=== PATIENT | female | born 1955 | race Caucasian/White ===

== ENCOUNTER 2019-08-22 14:44 | Outpatient (CLI) | payer MEDICARE, BC, SELFPAY ==
--- NOTE | ~2019-08-22 | MM_ITS ---
EXAMINATION: MM screening alfredo BI w eloise HISTORY: Screening mammogram TECHNIQUE: Craniocaudal and mediolateral oblique 3-D tomosynthesis images were obtained and synthetic 2-D images were generated. CAD analysis was submitted and interpreted. COMPARISON: 08/20/2018, 08/17/2017, 08/04/2016 bilateral digital screening mammogram examinations BREAST PARENCHYMAL COMPOSITION: The breasts are heterogeneously dense, which may obscure small masses . FINDINGS: There is no evidence of suspicious mass, calcification, or architectural distortion to sugg est malignancy in either breast. There has been no suspicious interval change. IMPRESSION: 1. No mammographic evidence of malignancy. 2. Recommend routine screening mammography in one year. BI-RADS Category 1: Negative Reviewed, dictated and finalized at location A.
--- NOTE | ~2019-08-22 | DEXA_ITS ---
Bone Density Report Name: Brianna Serrano Age: 64 Sex: Female Ethnicity: White Date of : 1955 Indication: osteopenia; monitoring treatment; parental hip fracture; height loss; Referring Provider: Ladarius uDnlap Study: Bone densitometry was performed. Exam Date: August 22, 2019 Accession number: [id number] Bone Density: Region BMD T-score Z-score Classification AP Spine (L1-L4) 0.887 -1.5 0.4 Osteopenia Femoral Neck (Left) 0.658 -1.7 -0.1 Osteopenia Total Hip (Left) 0.870 -0.6 0.7 Normal Total Hip Bilateral Avg 0.841 -0.9 0.4 Normal Femoral Neck (Right) 0.650 -1.8 -0.2 Osteopenia Total Hip (Right) 0.811 -1.1 0.2 Osteopenia World Health Organization criteria for BMD impression classify patients as: Normal (T-score at or above -1.0), Osteopenia (T-score between -1.0 and -2.5), or Osteoporosis (T-score at or below -2.5). 10-year Fracture Risk: FRAX not reported because: Treated for osteoporosis Previous Exams: Region Exam Age BMD T-score BMD Change BMD Change Date g/cm2 vs Baseline vs Previous AP Spine(L1-L4) 08/22/2019 64 0.887 -1.5 -0.168(-16.0%) -0.028(-3.1%)* 08/17/2017 62 0.915 -1.2 -0.140(-13.3%) -0.014(-1.5%) 06/18/2015 60 0.928 -1.1 -0.127(-12.0%) -0.014(-1.4%)# 07/11/2011 56 0.942 -1.0 -0.113(-10.7%) -0.080(-7.8%)# 11/09/2004 49 1.022 -0.2 -0.033(-3.1%)* -0.033(-3.1%)* 09/22/2003 48 1.055 0.1 Total Hip(Left) 08/22/2019 64 0.870 -0.6 0.048(5.8%)# 0.026(3.0%) 08/17/2017 62 0.844 -0.8 0.022(2.7%)# 0.005(0.6%) 06/18/2015 60 0.839 -0.8 0.017(2.1%)# -0.007(-0.9%)# 07/11/2011 56 0.846 -0.8 0.025(3.0%)# 0.013(1.6%)# 11/09/2004 49 0.833 -0.9 0.011(1.4%) 0.011(1.4%) 09/22/2003 48 0.822 -1.0 Total Hip(Right) 08/22/2019 64 0.811 -1.1 0.020(2.6%)# 0.027(3.4%) 08/17/2017 62 0.784 -1.3 -0.007(-0.9%)# 0.004(0.5%) 06/18/2015 60 0.781 -1.3 -0.011(-1.3%)# -0.026(-3.3%)# 07/11/2011 56 0.807 -1.1 0.016(2.0%)# 0.004(0.5%)# 11/09/2004 49 0.803 -1.1 0.011(1.4%) 0.011(1.4%) 09/22/2003 48 0.791 -1.2 *Denotes significance at 95% confidence level, LSC for AP Spine = 0.022 g/cm2, LSC for Total Hip = 0.027 g/cm2 Clinical Information Provided by Patient: Parent has had a hip fracture Is being treated for osteoporosis Has used the following medications: Fosamax (i.e. alendronate), Vitamin D, Calcium Patient maximum height was 69 Menopause Age: 40 No regular weight bearing
== END 2019-08-22 14:45 | disposition home or self-care (01) ==
LOC: ANHIMG 14:53
PROVIDERS: PCP Family Medicine; Visit Provider Physician Assistant
DX: Z12.31 Encounter for screening mammogram for malignant neoplasm of breast (principal); M81.0 Age-related osteoporosis without current pathological fracture; M85.88 Other specified disorders of bone density and structure, other site; M85.852 Other specified disorders of bone density and structure, left thigh; M85.851 Other specified disorders of bone density and structure, right thigh
CPT/HCPCS: 77063; 77067; 77080

== ENCOUNTER 2020-09-30 12:41 | Outpatient (CLI) | payer MEDICARE, BC, SELFPAY ==
--- NOTE | ~2020-09-30 | MM_ITS ---
EXAMINATION: MM screening alfredo BI w eloise HISTORY: Screening TECHNIQUE: Craniocaudal and mediolateral oblique 3-D tomosynthesis images were obtained and synthetic 2-D images were generated. CAD analysis was submitted and interpreted. COMPARISON: Comparison to multiple prior studies sequentially, with oldest reviewed study dated 01/2017. BREAST PARENCHYMAL COMPOSITION: The breasts are heterogeneously dense, which may obscure small masses . FINDINGS: There is no evidence of suspicious mass, calcification, or architectural distortion to sugg est malignancy in either breast. There has been no suspicious interval change. IMPRESSION: 1. No mammographic evidence of malignancy. 2. Recommend routine screening mammography in one year. BI-RADS Category 1: Negative Reviewed, dictated and finalized at location A.
== END 2020-09-30 12:42 | disposition home or self-care (01) ==
LOC: ANHIMG 12:45
PROVIDERS: PCP Family Medicine; Visit Provider Family Medicine
DX: Z12.31 Encounter for screening mammogram for malignant neoplasm of breast (principal)
CPT/HCPCS: 77063; 77067

== ENCOUNTER 2021-04-02 15:21 | Outpatient (CLI) | payer MEDICARE, BC, SELFPAY ==
--- NOTE | ~2021-04-02 | XR_ITS ---
XR_CERV2-3V_CR DATE: 04/02/2021 16:04 INDICATION: Radiculopathy, cervical region TECHNIQUE: AP, open-mouth, lateral views COMPARISON: 06/13/2018 cervical spine FINDINGS: C1 and C2 are normally aligned and the odontoid process is intact. There is multilevel degenerative disc disease, mild at C2-3, moderately severe at C3-4, moderate at C 4-5, moderately severe at C5-6, moderate at C6-7. There is degenerative change at the apophyseal joints and mid to lower uncovertebral joints. No fracture, dislocation or locked facet or prevertebral soft tissue swelling. IMPRESSION: Cervical spondylosis, advanced since 06/13/2018 Reviewed, dictated and finalized at Location A. Reviewed, dictated and finalized at location A.
== END 2021-04-02 15:22 | disposition home or self-care (01) ==
LOC: ANHIMG 15:30
PROVIDERS: PCP Family Medicine; Visit Provider Physician Assistant
DX: M47.22 Other spondylosis with radiculopathy, cervical region (principal)
CPT/HCPCS: 72040

== ENCOUNTER 2021-04-09 15:30 | Outpatient (CLI) | payer MEDICARE, BC, SELFPAY ==
--- NOTE | ~2021-04-09 | MR_ITS ---
EXAMINATION: MR cervical spine wo con EXAM DATE: 04/09/2021 16:31 INDICATION: M54.12 - Radiculopathy, cervical region. TECHNIQUE: Multi-sequential, multiplanar MR images of the cervical spine were obtained without contra st. Axial T2, axial T2 MERGE sequence. Sagittal T1, T2, T2 fat saturation images also obtained. Com parison is made to prior examination from 06/27/2016. FINDINGS: Moderate loss of the disc height C3-4, C5-6 and 6-7, mild at C4-5. Partial osseous fusion of the vertebral bodies at C3-4. The vertebral bodies are aligned in the AP dimension. There are no s uspicious marrow signal abnormalities. The spinal cord signal intensity and intrinsic morphology is normal. Cervicomedullary junction is normal in appearance. There are no suspicious marrow signal abn ormalities. Paraspinal soft tissue is unremarkable. Level by level evaluation: C2-C3: Disc does not extend beyond the endplate margin. Uncovertebral joint arthropathy: Mild to moderate bilateral. Facet joint arthropathy: Moderate to severe right, moderate left. Neural foraminal stenosis: Moderate right. Central canal stenosis: No stenosis. C3-C4: Partially fused. Uncovertebral joint arthropathy: Fused. Facet joint arthropathy: Bulky but fused right, partially fused left. Neural foraminal stenosis: Mild right. Central canal stenosis: No stenosis. C4-C5: There is a mild diffuse disc bulge. Uncovertebral joint arthropathy: Moderate right, mild to moderate left. Facet joint arthropathy: Severe right, moderate left. Neural foraminal stenosis: Moderate right, mild to moderate left. Central canal stenosis: No stenosis. C5-C6: There is a mild diffuse disc bulge asymmetric to the left Uncovertebral joint arthropathy: Moderate to severe left, moderate right. Facet joint arthropathy: Moderate to severe bilateral. Neural foraminal stenosis: Moderate to severe left, mild to moderate right. Central canal stenosis: Mild. C6-C7: There is a mild diffuse disc bulge. Uncovertebral joint arthropathy: Moderate to severe bilateral. Facet joint arthropathy: Mild to moderate bilateral. Neural foraminal stenosis: Mild to moderate bilateral. Central canal stenosis: Mild. C7-T1: Disc does not extend beyond the endplate margin. Uncovertebral joint arthropathy: Mild to moderate bilateral. Facet joint arthropathy: Moderate right, mild to moderate left. Neural foraminal stenosis: No stenosis. Central canal stenosis: No stenosis. There is mild interval progression compared to 2017 exam. IMPRESSION: Overall moderate cervical to severe spondylosis, mild progression compared to 2017. Reviewed, dictated and finalized at location A. UTER CUSTOMER SUPPORT SPECIALIST IMPRESSION: Overall moderate cervical to severe spondylosis, mild progression c ompared to 2017.
== END 2021-04-09 15:31 | disposition home or self-care (01) ==
LOC: ANHIMG 15:36
PROVIDERS: PCP Family Medicine; Visit Provider Physician Assistant
DX: M47.22 Other spondylosis with radiculopathy, cervical region (principal)
CPT/HCPCS: 72141

== ENCOUNTER 2021-07-16 10:19 | Observation (INO) | payer MEDICARE, BC, SELFPAY ==
[2021-07-16] VITALS (17 sets, daily range): BP systolic 89–119; BP diastolic 43–89; PULSE 72–177; RESP 14–39; TEMP 36.6–36.9; O2SAT 95–100; BMI 26.6
--- NOTE | ~2021-07-16 | CT_ITS ---
EXAMINATION: CTA chest PE protocol DATE: 07/16/2021 12:04 INDICATION: Shortness of breath TECHNIQUE: Computed tomography angiography (CTA) of the chest was performed with 100 mL Omnipaque-350 intravenous contrast timed to evaluate the pulmonary arteries. Coronal maximum intensity projection 3D-reconstructions were created by the technologist. The dose-length product (DLP) was 282.37 mGy-cm. Automated exposure control and iterative reconstruction technique were employed. COMPARISON: None. FINDINGS: The pulmonary arteries are well-opacified. No pulmonary embolism is identified. There is mi ld atelectasis. Right lower lobe nodules measure up to 5 mm. No pathologically enlarged thoracic lymp h nodes are identified. The heart size is normal. There is a small sliding hiatal hernia. There is mi ld thoracic spondylosis. IMPRESSION: 1. No pulmonary embolus identified. 2. Right lung nodules measuring up to 5 mm. If the patient has no risk factors for malignancy, no fur ther follow up is required. If there are risk factors for malignancy (i.e., history of smoking, asbe stos or radiation exposure), consider followup CT in 12 months. Reviewed, dictated and finalized at location A. ATOLOGICAL SURGEON IMPRESSION: 1. No pulmonary embolus identified. 2. Right lung nodules measuring up to 5 mm. If the patient has no risk factors for malignancy, no further follow up is required. If there are risk factors fo r malignancy (i.e., history of smoking, asbestos or radiation exposure), consid er followup CT in 12 months.
--- NOTE | 2021-07-16 10:25 | ECG_ITS ---
Measurements Intervals [place] Rate: 121 P: KS: 0 QRS: -28 QRSD: 86 T: 69 QT: 333 QTc: 473 Interpretive Statements ATRIAL FIBRILLATION WITH RAPID VENTRICULAR RESPONSE CONSIDER INFERIOR INFARCT, AGE INDETERMINATE BASELINE ARTIFACT- I, II, III, AVR, AVF ABNORMAL ECG Electronically Signed On 07-16-2021 15:16:08 MEDICAL FACILITIES SECTION DIRECTOR by David Abarca D.O.
--- NOTE | 2021-07-16 11:13 | ED.SOB ---
HPI - SOB/Dyspnea General Chief Complaint: Shortness of Breath/Dyspnea Stated Complaint: SOB, dizzy Time Seen by Provider: 07/16/21 10:47 Source: patient History of Present Illness HPI Narrative: Patient presents with shortness of breath. She has symptoms approximately 2 days ago she was at a running to try and get out of the rain and she became really short of breath. Since then mild physical activity or her usual exercise routine causes significant shortness of breath which is unusual for her. Stress sensation of not getting enough air. She denies any lightheadedness nausea vomiting chest pain abdominal pain or diaphoresis. Reports if she is not moving she feels much improved. She reports a history of paroxysmal A. fib and is on Xarelto. Related Data Home Medications Medication Instructions Recorded Confirmed apixaban 5 mg tablet 5 mg PO BID 10/20/20 07/16/21 Allergies Allergy/AdvReac Type Severity Reaction Status Date / Time No Known Allergies Allergy Verified 04/28/21 13:55 Review of Systems Review of Systems: CONSTITUTIONAL: Denies fever, chills, or sweats. EYES: Denies visual changes, redness, or discharge. ENT: Denies rhinorrhea, congestion, sore throat, or otalgia. CARDIOVASCULAR: Denies chest pain, palpitations, or edema. RESPIRATORY: Reports shortness of breath GASTROINTESTINAL: Denies abdominal pain, nausea, vomiting, or diarrhea. GENITOURINARY: Denies dysuria or hematuria. SKIN: Denies rash or itching. MUSCULOSKELETAL: Denies back pain, joint pain, or myalgia. NEUROLOGIC: Denies headache, numbness, dizziness, or weakness. PSYCHIATRIC: Denies anxiety or depression. All systems reviewed & are unremarkable except as noted in HPI and below PMFSH Past Medical History Medical History (Updated 07/16/21 @ 13:56 by Kathy Mascorro PA-C) Age-related osteoporosis without current pathological fracture Essential (primary) hypertension Gastroesophageal reflux disease Hypothyroidism, unspecified Lumbar stenosis Mixed hyperlipidemia Polyp of colon Surgical History Surgical History (Updated 07/16/21 @ 13:53 by Kathy Mascorro PA-C) History of colonoscopy with polypectomy History of exploratory laparotomy History of mandibular surgery TMJ repair. History of spinal surgery (2019) L4-L5-S1 synovial cystectomy and foraminotomy. History of tonsillectomy Family History Family History Mother Patient's mother is Family history of Alzheimer's disease Father Patient's father is Diabetes mellitus Family history of cardiovascular disease Carcinoma of colon Family history of dementia Family history of congestive heart failure Sibling Family history of malignant neoplasm Social History Social History Social History: Surrogate decision-maker: CODE STATUS: Exam Narrative: GENERAL: Well-appearing, well-nourished, and in no acute distress. HEAD: Normocephalic, atraumatic. EYES: PERRLA and EOMI. ENT: Nares clear, no rhinorrhea or epistaxis. Mucous membranes moist. NECK: Supple. No masses. No JVD CHEST: Clear to auscultation. No respiratory distress. No wheezes rales or rhonchi HEART: Regular rhythm. No murmur heard. Normal peripheral pulses. ABDOMEN: Soft, nontender, nondistended, normal active bowel sounds. EXTREMITIES: Normal range of motion. No edema. SKIN: Warm, dry, no rash. NEURO: No focal deficits. Alert and oriented x3. PSYCH: Normal mood and affect. Course Reevaluation(s) Reevaluation #1: Patient is resting comfortably feels much improved after diltiazem. Vital Signs Vital signs: Vital Signs Temperature 36.6 C 07/16/21 10:32 Pulse Rate 77 07/16/21 10:32 Respiratory Rate 18 07/16/21 10:32 Blood Pressure 119/89 07/16/21 10:32 Pulse Oximetry 100 07/16/21 10:32 Temperature 36.6 C 07/16/21 10:32 Pul
[2021-07-16 11:26] LABS: Glucose Point of Care 115 mg/dl (65-105)
[2021-07-16 11:30] LABS: Basophils Percent Auto 0.6 % (0.2-1.2); Eosinophils Absolute Auto 0.1 K/mm3 (0-0.3); Eosinophils Percent Auto 1.1 % (0-4.4); Hematocrit 43.9 % (37.0-47.0); Hemoglobin 14.9 g/dL (12.0-15.0); Immature Granulocyte Absolute 0.01 K/mm3 (0.00-0.031); Immature Granulocyte Percent A 0.2 % (0-0.5); Lymphocytes Absolute Auto 1.39 K/mm3 (0.9-3.2); Lymphocytes Percent Auto 29.5 % (18.3-44.2); Mean Corpuscular HGB Conc 33.9 g/dl (32-36); Mean Corpuscular Hemoglobin 30.2 pg (26-34); Mean Corpuscular Volume 88.9 fl (80-100); Mean Platelet Volume 9.8 fl (7.4-10.4); Monocytes Absolute Auto 0.5 K/mm3 (0.1-0.6); Monocytes Percent Auto 9.8 % (2.6-8.5); Neutrophils Absolute Auto 2.8 K/mm3 (1.3-6.7); Neutrophils Percent Auto 58.8 % (45.5-73.1); Platelet Count Result 212 k/mm3 (150-375); Red Blood Count 4.94 M/mm3 (4.2-5.4); Red Cell Distribution Width 12.8 % (11.5-14.5); White Blood Count 4.7 K/mm3 (4.5-10.0)
[2021-07-16 11:40] LABS: INR 1.1; Prothrombin Time 13.6 Seconds (11.1-14.7)
[2021-07-16 11:41] LABS: Partial Thromboplastin Time 29.8 SECONDS (22.3-36.8)
[2021-07-16 11:48] LABS: Alanine Aminotransferase 23 U/L (4-35); Albumin Level 4.4 g/dL (3.5-5.1); Alkaline Phosphatase 63 U/L (38-126); Anion Gap 11 mmol/L (8-16); Aspartate Amino Transferase 29 U/L (14-36); Bilirubin,Total 0.6 mg/dL (0.2-1.3); Blood Urea Nitrogen 21 mg/dL (7-17); Calcium 9.4 mg/dL (8.4-10.2); Carbon Dioxide 23 mmol/L (22-30); Chloride 109 mmol/L (98-107); Estimated CRCL calculation 69 ml/min; Estimated Glomerular Filt Rate > 60; Glucose 128 mg/dL (65-110); Potassium 4.2 mmol/L (3.4-5.0); Sodium 143 mmol/L (137-145)
[2021-07-16 11:57] LABS: NT Pro B Type Natriuretic Pept 4920 pg/mL (5-100); Troponin I < 0.012 ng/mL (0.000-0.034)
[2021-07-16 12:53] LABS: Add Urine Microscopic? YES; Appearance Urine Clear (Clear); Bacteria Urine Trace /hpf; Bilirubin Urine Negative (Negative); Blood Urine Negative (Negative); Color Urine Yellow (Yellow); Glucose Urine UA Negative (Negative); Ketones Urine Negative (Negative); Leukocyte Esterase Ur Trace LEU/UL (Negative); Mucus Urine Few /lpf; Nitrate Urine Negative (Negative); Protein Urine Negative (Negative); RBC Urine 0-2 /hpf (0-2); Squamous Epithelial Cell Urine Rare /hpf (Few); Urobilinogen Urine Negative mg/dL (<2.0)
[2021-07-16] MEDS: dilTIAZem 100 MG/100 ML 100 MG/100 ML BAG IV CONT (12:56)
[2021-07-16] MEDS: dilTIAZem HCl INJ 25 MG/5 ML VIAL 10 MG IV PUSH (12:56)
--- NOTE | 2021-07-16 13:45 | PM.IMHP ---
H&P: HPI History of Present Illness Date/Time: 07/16/21 13:45 Chief Complaint: Shortness of breath. Narrative: This is a 66-year-old female with paroxysmal atrial fibrillation, hypertension, and hypothyroidism who presented to the emergency department via EMS from her primary care provider's office for evaluation of shortness of breath. A couple of days ago she went to a and ran a short distance to the building in attempts to get out of the rain. She was unusually short of breath thereafter and she has had dyspnea with exertion since that time. Additionally she has been experiencing mild midsternal chest tightness and occasional palpitations which seem to occur mostly with activity. She made an appointment with her doctor today and was sent to the ER after she was found to be in atrial fibrillation with rapid ventricular response. She was given diltiazem 10 mg IV push x1 and is currently on a diltiazem drip with some improvement in her rate. Currently she has no specific complaints and is feeling better with better rate control. She denies syncope, near syncope, current chest pain, shortness of breath, nausea, vomiting, and sweats. Of note, she missed her morning dose of metoprolol today. Review of Systems Review of Systems: Twelve systems were reviewed and are negative except for as per HPI. [facility] Past Medical History Medical History (Updated 07/16/21 @ 13:56 by Kathy Mascorro PA-C) Age-related osteoporosis without current pathological fracture Essential (primary) hypertension Gastroesophageal reflux disease Hypothyroidism, unspecified Lumbar stenosis Mixed hyperlipidemia Polyp of colon Surgical History Surgical History History of colonoscopy with polypectomy History of exploratory laparotomy History of mandibular surgery TMJ repair. History of spinal surgery (2019) L4-L5-S1 synovial cystectomy and foraminotomy. History of tonsillectomy Family History Family History Mother Patient's mother is Family history of Alzheimer's disease Father Patient's father is Diabetes mellitus Family history of cardiovascular disease Carcinoma of colon Family history of dementia Family history of congestive heart failure Sibling Family history of malignant neoplasm Social History Social History (Updated 07/16/21 @ 21:45 by Kathy Mascorro PA-C) Social History: Surrogate decision-maker: Luis Serrano, . CODE STATUS: Full code. Smoking status: Never smoker Second hand tobacco smoke exposure: No Alcohol intake: never Substance use: never Substance use type: does not use Additional living arrangements comments: Resides in [place] with her . 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 Meds Home Medications and Allergies Home Medications Medication Instructions Recorded Confirmed Type metoprolol succinate 100 mg 100 mg PO DAILY #90 tablet 07/13/20 07/16/21 Rx tablet,extended release 24 hr apixaban 5 mg tablet 5 mg PO BID 10/20/20 07/16/21 History levothyroxine 100 mcg tablet See Rx Instructions .ROUTE 07/08/21 07/16/21 Rx .COMPLEX #90 tablet acetaminophen [Tylenol] 650 mg PO BID 07/16/21 07/16/21 History Allergies Allergy/AdvReac Type Severity Reaction Status Date / Time No Known Allergies Allergy Verified 04/28/21 13:55 Vital Signs Vital Signs - 24 hr 07/16/21 10:32 07/16/21 10:44 07/16/21 11:01 Temperature 97.9 F Pulse Rate 77 83 Respiratory Rate 18 17 Blood Pressure 119/89 101/70 Pulse Oximetry 100 100 98 07/16/21 12:03 07/16/21 12:56 Temperature Pulse Rate 103 H 143 H Respiratory Rate 14 Blood Pressure 98/83 L Pulse Oximetry 98 Exam Narrative: General: Well-developed female sitting up in bed. Weight: 81.7 kg. BMI: 26.6. HEENT: ALEX
[2021-07-16 15:25] LABS: SARS-CoV-2 RNA PCR Negative
[2021-07-16] MEDS: METOPROLOL TARTRATE 50 MG TAB PO (16:11)
--- NOTE | 2021-07-16 19:56 | PC.NURSE ---
Patient care report called to VANNESSA Long, all questions answered at this time.
--- NOTE | 2021-07-16 21:06 | ADMGEN ---
Addendum entered by Mercedes Ambrocio RN 07/16/21 21:26: Patient arrived at 2023. Original Note: This patient, Brianna Serrano, was admitted to [facility] at 2030. Patient/family oriented to hospital policies and general routines including ID bracelet, bed and alarms, visiting hours, pain management, procedures, bathroom and other care routines, personal items, smoking policy, room service/diet, and visiting hours. Information on how to activate the Rapid Response Team has been discussed. Patient/Family are encouraged to report perceived risks to care and to ask questions if they do not understand what they are told or what they should do.
[2021-07-16] MEDS: APIXABAN 5 MG TABLET PO (22:17)
[2021-07-17] VITALS (8 sets, daily range): BP systolic 125–126; BP diastolic 74–79; PULSE 67–85; RESP 13–16; TEMP 36.1–36.8; O2SAT 96–98
[2021-07-17 05:15] LABS: Anion Gap 7 mmol/L (8-16); Blood Urea Nitrogen 21 mg/dL (7-17); Carbon Dioxide 23 mmol/L (22-30); Chloride 109 mmol/L (98-107); Estimated CRCL calculation 69 ml/min; Estimated Glomerular Filt Rate > 60; Glucose 111 mg/dL (65-110); Sodium 139 mmol/L (137-145)
[2021-07-17] MEDS: LEVOTHYROXINE SODIUM 100 MCG TABLET PO (06:12)
[2021-07-17] MEDS: APIXABAN 5 MG TABLET PO (08:48)
[2021-07-17] MEDS: METOPROLOL SUCCINATE EXT REL 100 MG TABCR PO (08:49)
--- NOTE | 2021-07-17 11:17 | PM.CNCAR ---
Assessment and Plan Assessment and plan (1) Paroxysmal atrial fibrillation: Code(s): I48.0 - Paroxysmal atrial fibrillation Status: Acute Assessment and Plan: Symptoms related atrial fibrillation with rapid ventricular response. She converted back to sinus rhythm and is feeling fine. Her episodes are infrequent. At this point I do not see a need to change her regimen. I do not think that she needs a an antiarrhythmic at this point. We simply discharge her on the same medications that she came in with including metoprolol succinate, Eliquis 5 mg p.o. b.i.d. follow-up with Dr. Miramontes 1-2 weeks. (2) Chronic anticoagulation: Code(s): Z79.01 - FPC (current) use of anticoagulants Status: Acute Assessment and Plan: Continue Eliquis (3) Nodule of right lung: Code(s): R91.1 - Solitary pulmonary nodule Status: Acute Assessment and Plan: Will need outpatient monitoring and follow-up with Dr. Parra. She verbalized understanding and will follow-up (4) Hypothyroidism, unspecified: Qualifiers: Hypothyroidism type: unspecified Qualified Code(s): E03.9 - Hypothyroidism, unspecified Code(s): E03.9 - Hypothyroidism, unspecified Status: Acute Assessment and Plan: On replacement (5) Mixed hyperlipidemia: Code(s): E78.2 - Mixed hyperlipidemia Status: Acute (6) Essential (primary) hypertension: Code(s): I10 - Essential (primary) hypertension Status: Acute Assessment and Plan: Near goal Okay for discharge from cardiac perspective History of Present Illness History of Present Illness Consult date/time: 07/17/21 11:17 Requesting physician: Cj Vargas MD Consult reason: atrial fibrillation Reason For Visit: Afib with RVR Narrative: Date of service 07/17/2021 Reason consultation: Atrial fibrillation Requesting provider: Dr. Vargas History patient is a 66-year-old female who has paroxysmal atrial fibrillation, hypertension and hypothyroidism who went to her primary care's office yesterday and was found to be in atrial fibrillation rapid ventricular response. She was sent to the ER for further workup evaluation. She was found to be in AFib and started on diltiazem drip as well as diltiazem IV push 10 mg. She did convert to sinus rhythm for which she remains. Her symptoms have since resolved. Her symptoms started earlier in the week whenever she was rushing to get out of the rain. She shortly thereafter became short of breath and she had continued to have dyspnea with exertion as well as some mild chest tightness with exertion over the next couple of days. Her symptoms worsened to the point that she call to be seen by her PCP. She otherwise has been feeling fine without any chest pain, syncope, presyncope, paroxysmal nocturnal dyspnea, orthopnea, edema, palpitations or dyspnea. She has not been having any significant palpitations over the past couple of days and mostly simply shortness of breath. Review of Systems Review of Systems: All systems reviewed & are unremarkable except as noted in HPI and below Constitutional: Constitutional: Denies weakness Eyes: Eyes: Denies blurry vision ENT: Reports Normal hearing present Cardiovascular: Cardiovascular: Reports chest pain Respiratory: Respiratory: Reports dyspnea on exertion Gastrointestinal: Gastrointestinal: Denies abdominal pain Genitourinary: Genitourinary: Denies flank pain Musculoskeletal: Musculoskeletal: Denies neck pain Integumentary/Breasts: Skin/Breast: Denies dry skin Neurologic: Denies headache(s) Psychiatric: Psychiatric: Denies anxiety Endocrine: Endocrine: Denies excessive sweating Hematologic/Lymphatic: Hematologic/Lymphatic: Denies easy bleeding Allergic/Immunologic: Allergic/Immunologic: Denies GI upset with certain foods PMFSH Past Medical History Medical History (Reviewed 07/17/21 @ 11:20 by Jaylen Ro,
--- NOTE | 2021-07-17 11:33 | PM.DS ---
DS: Admitting Diagnosis Discharge Date 07/17/21 Admitting Diagnosis SOB/CP DS: Discharge Diagnosis Discharge Diagnosis (1) Atrial fibrillation with rapid ventricular response: Code(s): I48.91 - Unspecified atrial fibrillation Status: Acute Assessment and Plan: This is a 66-year-old female with paroxysmal atrial fibrillation, hypertension, and hypothyroidism who presented to the emergency department via EMS from her primary care provider's office for evaluation of shortness of breath. A couple of days ago she went to a and ran a short distance to the building in attempts to get out of the rain. She was unusually short of breath thereafter and she has had dyspnea with exertion since that time. Additionally she has been experiencing mild midsternal chest tightness and occasional palpitations which seem to occur mostly with activity. She made an appointment with her doctor today and was sent to the ER after she was found to be in atrial fibrillation with rapid ventricular response. She was given diltiazem 10 mg IV push x1 and is currently on a diltiazem drip with some improvement in her rate. Patient was admitted to the hospital under observation status for consult to Cardiology. While on the diltiazem drip she converted into normal sinus rhythm. She is otherwise feeling asymptomatic at this time. Cardiology evaluated the patient and recommended for her not to make any adjustments to her medications at this time. She would like for to follow-up with her cath lab technologist Dr. Miramontes in 1-2 weeks for further evaluation at that time. Return to ER warnings given. The patient understands and agrees the plan all questions answered. (2) Nodule of right lung: Code(s): R91.1 - Solitary pulmonary nodule Status: Acute Assessment and Plan: Patient is found have a 5 mm right pulmonary lung nodule. Patient has no history of smoking or risk factors for malignancy. Told her she has a follow-up with her primary care provider for further evaluation workup. It was recommended by the radiologist for her to get a CT of her chest in 12 months for further evaluation. (3) Essential (primary) hypertension: Code(s): I10 - Essential (primary) hypertension Status: Acute Assessment and Plan: Blood pressure well controlled at this time 126/79. (4) Hypothyroidism, unspecified: Qualifiers: Hypothyroidism type: unspecified Qualified Code(s): E03.9 - Hypothyroidism, unspecified Code(s): E03.9 - Hypothyroidism, unspecified Status: Acute Assessment and Plan: Continue levothyroxine. TSH normal. DS: Summary Hospital Course Hospital Course: See above Status at Discharge Cognitive/behavioral status at discharge: Stable, improved. Time Spent with Patient Time attestation: Total time spent providing and/or coordinating discharge services: 42 Time spent: Greater than 30 minutes Exam Narrative: General: 66-year-old woman sitting up in bed on her phone. Appears comfortable. In no acute distress. Skin: No jaundice or cyanosis. Good skin turgor. Neck: Full range of motion. Supple. Respiratory: Lungs are clear to auscultation bilaterally. No bony chest wall tenderness. Cardiovascular: The heart has a regular rate and rhythm without murmur. Lower extremities: No lower extremity edema. Distal pulses are easily palpated. No calf tenderness to palpation. Gastrointestinal: The abdomen is soft, nontender and nondistended with active bowel sounds. Psychiatric: Lucid and oriented. Memory intact. Neurologic: No focal deficits. Speech is clear. No facial drooping. DS: Data Data Completed and Pending Labs on day of discharge: Labs from last 24 hours 07/17/21 07/17/21 07/17/21 04:32 04:32 04:32 WBC RBC Hgb Hct MCV MCH MCHC RDW Plt Cou
[2021-07-17 13:10] LABS: Free T4 Free Thyroxine Reflex 1.14 ng/dL (0.78-2.19)
[2021-07-17 14:10] LABS: Total Triiodothyronine (T3) 1.33 NG/ML (0.97-1.69)
== END 2021-07-17 12:35 | disposition home or self-care (01) ==
LOC: ANHED 13:31 → ANHIMU 17:11 → ANHCPC 18:17
PROVIDERS: Physician Assistant; Admitting Provider Internal Medicine; Emergency Provider Emergency Medicine; PCP Family Medicine; Visit Provider Physician Assistant
DX: I48.0 Paroxysmal atrial fibrillation (principal); I10 Essential (primary) hypertension; E03.9 Hypothyroidism, unspecified; E78.2 Mixed hyperlipidemia; M48.061 Spinal stenosis, lumbar region without neurogenic claudication; M81.0 Age-related osteoporosis without current pathological fracture; R91.1 Solitary pulmonary nodule; Z86.010 Personal history of colon polyps; Z79.01 Long term (current) use of anticoagulants; Z20.822 Contact with and (suspected) exposure to COVID-19
CPT/HCPCS: 36415; 71275; 80048; 80053; 81001; 82948; 83735; 83880; 84439; 84443; 84480; 84484; 85025; 85610; 85730; 93005; 96365; 96366; 99285; A9270; C9803; G0378; Q9967; U0003; U0005

== ENCOUNTER 2021-11-05 08:38 | Outpatient (CLI) | payer MEDICARE, BC, SELFPAY ==
--- NOTE | ~2021-11-05 | MM_ITS ---
EXAMINATION: MM screening [facility] BI w eloise HISTORY: Screening mammogram TECHNIQUE: Craniocaudal and mediolateral oblique 3-D tomosynthesis images were obtained and synthetic 2-D images were generated. CAD analysis was submitted and interpreted. COMPARISON: 09/30/2020, 08/22/2019, 08/20/2018 BREAST PARENCHYMAL COMPOSITION: The breasts are heterogeneously dense, which may obscure small masses . FINDINGS: There is no suspicious mass, calcification, or architectural distortion to suggest malignan cy in either breast. There has been no suspicious interval change. IMPRESSION: 1. No mammographic evidence of malignancy. 2. Recommend routine screening mammography in one year. BI-RADS Category 1: Negative Reviewed, dictated and finalized at location A.
== END 2021-11-05 08:39 | disposition home or self-care (01) ==
LOC: ANHIMG 08:41
PROVIDERS: PCP Family Medicine; Visit Provider Family Medicine
DX: Z12.31 Encounter for screening mammogram for malignant neoplasm of breast (principal)
CPT/HCPCS: 77063; 77067

== ENCOUNTER 2021-12-24 09:32 | Outpatient (CLI) | payer MEDICARE, BC, SELFPAY ==
--- NOTE | 2022-01-18 14:31 | WPDSLEEPSTUD ---
Sleep Study Date of Study: 12/24/21 Ordering Provider: Adelaida Clement DO Interpreting Physician: Adelaida Clement DO Sleep Study Type: Split Polysomnogram Height: 1.75 m Weight: 81.193 kg Body Mass Index: 26.4 Neck Circumference (inches): 15 [place]: 6 Reason for Sleep Study Atrial fibrillation, daytime hypersomnia Sleep History The patient is a 66-year-old female with atrial fibrillation, hypothyroidism, hypertension GERD and lumbar stenosis that had a sleep study ordered by her primary care physician for evaluation of sleep apnea. The patient denies awakening from sleep short of breath. She denies awakening at night with heartburn, belching or cough. She frequently snores loud enough that others complain. She rarely has trouble sleeping when she has a cold. She denies waking up gasping for air throughout the night. She denies having breathing problems at night observed by herself or others. She denies sweating excessively at night. She denies having heart palpitations or irregular heartbeats during the night. She denies falling asleep during the day but will occasionally fall asleep while driving. She denies sleep paralysis, cataplexy and hypnagogic / hypnopompic hallucinations. She denies having trouble at school or work due to sleepiness. She denies having nightmares. She rarely remembers her dreams. She denies having thoughts racing through her mind. She denies feeling sad, depressed or anxious. She denies having muscular tension. She denies noticing parts of her body jerk. She rarely kicks during the night. She denies having crawling and aching feelings in her legs as well as leg pain during the night. She rarely grinds her teeth during sleep and will rarely awaken with morning jaw pain. She denies being bothered by pain during the day and denies being awakened by pain during the night. She rarely wakes up feeling stiff in the morning. She occasionally wakes up with sore achy muscles. She occasionally wakes up with pain in the neck, spine and other joints. She goes to bed at midnight on both weekdays and weekends. It takes her 10 minutes to fall asleep. She wakes up 1-2 times throughout the night to urinate. She is able to fall back asleep within 5 minutes. She wakes up at 8:30 a.m. on weekdays and at 8:00 a.m. on the weekends. She typically gets 7 hours of sleep per night. She does not stay in bed after waking up in the morning. She currently lives with her . She does not consume any caffeinated beverages within 2 hours of bedtime. She does not engage in physical exercise before bedtime. She will occasionally read and watch television before falling asleep. She denies taking naps during the afternoon or the evening. She rarely drinks caffeinated beverages during the day. She denies tobacco, alcohol and recreational drug use. [facility] Past Medical History Medical History Age-related osteoporosis without current pathological fracture Essential (primary) hypertension Gastroesophageal reflux disease Hypothyroidism, unspecified Lumbar stenosis Mixed hyperlipidemia Polyp of colon Surgical History Surgical History History of colonoscopy with polypectomy History of exploratory laparotomy History of mandibular surgery TMJ repair. History of spinal surgery (2019) L4-L5-S1 synovial cystectomy and foraminotomy. History of tonsillectomy Family History Family History Mother Patient's mother is Family history of Alzheimer's disease Father Patient's father is Diabetes mellitus Family history of cardiovascular disease Carcinoma of colon Family history of dementia Family history of congestive heart failure Sibling Family history of malignant neoplasm Social History Social History (Reviewed 01/18
[2022-01-18 14:59] VITALS: BMI 26.4
--- NOTE | 2022-03-11 11:15 | SLEEP ---
PT STATES THAT SHE WILL NOT WEAR PAP THERAPY SHE WILL LOOK INTO OTHER OPTIONS
== END 2021-12-25 06:23 | disposition home or self-care (01) ==
LOC: ANHCSM 09:33
PROVIDERS: PCP Family Medicine; Visit Provider Family Medicine
DX: G47.9 Sleep disorder, unspecified (principal); G47.33 Obstructive sleep apnea (adult) (pediatric)
CPT/HCPCS: 95811

== ENCOUNTER → 2022-02-24 08:02 | Outpatient (CLI) | payer MEDICARE, BC, SELFPAY ==
--- NOTE | ~2022-02-24 | DEXA_ITS ---
Bone Density Report Name: GURDEEP NOVOA Age: 67 Sex: Female Ethnicity: White Date of : 1955 Indication: postmenopausal; screening for osteoporosis; height loss; anorexia or bulimia; Referring Provider: ELIDIA PORTILLO Study: Bone densitometry was performed. Exam Date: February 24, 2022 Accession number: [id number] Bone Density: Region BMD T-score Z-score Classification AP Spine (L1-L4) 0.974 -0.7 1.4 Normal Femoral Neck (Left) 0.668 -1.6 0.1 Osteopenia Total Hip (Left) 0.861 -0.7 0.8 Normal Femoral Neck (Right) 0.679 -1.5 0.2 Osteopenia Total Hip (Right) 0.838 -0.9 0.6 Normal Total Hip Mean 0.850 -0.8 0.7 Normal World Health Organization criteria for BMD impression classify patients as: Normal (T-score at or above -1.0), Osteopenia (T-score between -1.0 and -2.5), or Osteoporosis (T-score at or below -2.5). 10-year Fracture Risk(1): Major Osteoporotic Fracture 10% Hip Fracture 1.4% Reported Risk Factors: [place] (), Neck BMD=0.668, BMI=27.4 (1) FRAX(R) Version 3.08. Fracture probability calculated for an untreated patient. Fracture probability may be lower if the patient has received treatment. Clinical Information Provided by Patient: Has used the following medications: Vitamin D, Calcium Has the following medical conditions: Anorexia or Bulimia Patient maximum height was 69 Menopause Age: 39 Drinks caffeinated beverages Onset of menses at age 13 Number of children 3 Impression: The patient has low bone mass, based on the Left Femoral Neck T-score. The patient has an estimated ten-year risk of hip fracture of 1.4% and an estimated ten-year risk of major fracture of 10%, based on the WHO FRAX algorithm. Discussion: BONE DENSITY IS LOW AT ONE OR MORE SKELETAL SITES. This patient's lowest T-score is low at one or more skeletal sites. It meets the World Health Organization's (WHO) criteria for ?low bone mass? (T-score between -1.0 and -2.5). The patient's 10-year risk of fracture as calculated by FRAX is less than the threshold where pharmacological therapy is recommended by the National Osteoporosis Foundation (NOF). However, all treatment decisions require clinical judgment and consideration of individual patient factors, including patient preferences, comorbidities, previous drug use, risk factors not captured in the FRAX model (e.g., frailty, falls, vitamin D deficiency, increased bone turnover, interval significant decline in bone density) and possible under or overestimation of fracture risk by FRAX. The patient should follow a healthful lifestyle (good nutrition with adequate calcium and vitamin D, and appropriate weight-bearing exercise). Follow-Up: Consider repeating this study in 2 to 3 years to reassess this patient's status, or sooner if there is some new
== END ==
PROVIDERS: PCP Family Medicine; Visit Provider Family Medicine
DX: M81.0 Age-related osteoporosis without current pathological fracture (principal); M85.852 Other specified disorders of bone density and structure, left thigh; M85.851 Other specified disorders of bone density and structure, right thigh
CPT/HCPCS: 77080

== ENCOUNTER 2022-03-04 09:01 | Outpatient (CLI) | payer MEDICARE, BC, SELFPAY | END 2022-03-04 09:02 | disposition home or self-care (01) | LOC: ANHLAB 09:04 | PROVIDERS: PCP Family Medicine; Visit Provider Family Medicine | DX: E55.9 Vitamin D deficiency, unspecified (principal) | CPT/HCPCS: 36415; 82306 ==

== ENCOUNTER 2022-05-06 10:52 | Outpatient (CLI) | payer MEDICARE, BC, SELFPAY | END 2022-05-06 10:53 | disposition home or self-care (01) | LOC: ANHAUDIO 10:53 | PROVIDERS: PCP Family Medicine; Visit Provider Family Medicine | DX: H90.3 Sensorineural hearing loss, bilateral (principal) | CPT/HCPCS: 92557; 92567 ==

== ENCOUNTER 2022-06-09 10:00 | Outpatient (RCR) | payer MEDICARE, BC, SELFPAY | END 2022-06-09 23:59 | disposition home or self-care (01) | LOC: ANHAUDIO 10:00 | PROVIDERS: PCP Family Medicine; Visit Provider Family Medicine | DX: Z46.1 Encounter for fitting and adjustment of hearing aid (principal) | CPT/HCPCS: 99199; V5261 ==

== ENCOUNTER → 2023-02-07 10:11 | Outpatient (CLI) | payer MEDICARE, BC, SELFPAY | PROVIDERS: PCP Family Medicine; Visit Provider Nurse Practitioner Family | DX: M25.561 Pain in right knee (principal) | CPT/HCPCS: 73562 ==

== ENCOUNTER 2023-07-25 12:00 | Outpatient (RCR) | payer MEDICARE, BC, SELFPAY ==
--- NOTE | 2023-06-27 13:06 | PTOPEVAL1 ---
Assessment and note entered by Alirio Molina, PT Evaluation Information Assessment Status Evaluation Diagnosis Cervicalgia Onset April 2023 Subjective Information Feels like her pain is radiating from her shoulder up into her neck. Pain is all on her right side today. She is right handed. She did a lot of computer work for year. She has no loss of sleep. Most of her pain is related to upright activity and she is very involved in the singing community. No history of similar symptoms. She reports that she does get stiff muscles in her neck often. She is currently using Voltaren and muscle relaxers. Reported Pain Level Pain Score 4: Self Report Assessment PT Clinical Summary Patient presents with cervical mobility deficits limiting gross motion and functional field of view . Consistent with compressive disfunction of cervical discs and muscular restriction in pattern motion. Will benefit from skilled therapy to address postural dysfunction and weakness while integrating improve mobilization and pain for functional activity improvement. Plan of Care Interventions Hot Pack/Cold Pack,Manual Therapy,Mechanical Traction,Neuro Re-education,Therapeutic Activities ,Therapeutic Exercise PT Services Indicated Yes Treatment Frequency and 2x/week for 8 visits Duration These treatments will address the objective and functional deficits as defined above. The patient will be advanced safely and appropriately in order for the patient to progress towards his/her prior level of function. Additional exercises will be introduced and as well as a comprehensive home exercise program upon discharge, if needed, ?to ensure carryover of functional gains achieved in the clinic. This treatment plan has been reviewed and agreement upon by the patient.
--- NOTE | 2023-06-27 13:06 | OPREHPOC ---
Outpatient Therapy Plan of Care This is a Multidisciplinary Plan of Care that may contain components documented by all disciplines (PT, OT, and ST.) PT Problem 1 PT Problem #1 Knowledge Deficit PT Goal 1 Goal Independent with HEP Target Visit 4 PT Problem 2 PT Problem #2 Pain PT Goal 1 Goal Report cervical pain no greater than 1/10 with standing activity greater than 30 minutes Target Visit 4 PT Problem 3 PT Problem #3 Impaired Flexibility PT Goal 1 Goal Improve lia cervical rotation motion to 60 degrees to improve functional field of view and facet glide for pain reduction. Target Visit 8 PT Goal 2 Goal Improve lia cervical side bending to 35degrees to improve facet gliding for reduced pain and cervical compression. Target Visit 8 PT Problem 4 PT Problem #4 Impaired Strength PT Goal 1 Goal Improve lia periscapular strength to 4/5 to improve postural stability to reduce forward head and postural pain Target Visit 8
--- NOTE | 2023-07-25 13:06 | PTOPDC ---
Assessment and note entered by Alirio Molina, PT Evaluation Information Assessment Status Discharge Diagnosis Cervicalgia Onset April 2023 Subjective Information Patient reports that she has not seen a lot of improvement in her motion. Still gets some pulling in the neck with stretching activity. Feels pain is still activity dependent at this time. Feels comfortable with HEP and plans to continue performance of those post discharge. Reported Pain Level Pain Score 4: Self Report Assessment PT Clinical Summary Patient showed some improvement in R sided cervical mobility. Still significantly limited in lefty motion and appears structural at this time given restriction and consistency. We discussed in length following up with neurologist to assess degree of structural limitation and if she would benefit from injections at this time. Plan of Care PT Services Indicated D/C to HEP
--- NOTE | 2023-07-25 13:06 | OPREHPOC ---
Outpatient Therapy Plan of Care This is a Multidisciplinary Plan of Care that may contain components documented by all disciplines (PT, OT, and ST.) PT Problem 1 PT Problem #1 Knowledge Deficit PT Goal 1 Goal Independent with HEP Target Visit 4 Progress Met PT Problem 2 PT Problem #2 Pain PT Goal 1 Goal Report cervical pain no greater than 1/10 with standing activity greater than 30 minutes Target Visit 4 Progress Not Met PT Problem 3 PT Problem #3 Impaired Flexibility PT Goal 1 Goal Improve lia cervical rotation motion to 60 degrees to improve functional field of view and facet glide for pain reduction. Target Visit 8 Progress Not Met PT Goal 2 Goal Improve lia cervical side bending to 35degrees to improve facet gliding for reduced pain and cervical compression. Target Visit 8 Progress Not Met PT Problem 4 PT Problem #4 Impaired Strength PT Goal 1 Goal Improve lia periscapular strength to 4/5 to improve postural stability to reduce forward head and postural pain Target Visit 8 Progress Partially Met Comment Improved
== END 2023-07-25 13:22 | disposition home or self-care (01) ==
LOC: ANHGOSHPT 12:00
PROVIDERS: PCP Family Medicine; Visit Provider Nurse Practitioner
DX: M54.2 Cervicalgia (principal)
CPT/HCPCS: 97012; 97110; 97140; 97161; 97530

== ENCOUNTER 2023-09-20 00:42 | Day surgery (SDC) | payer MEDICARE, BC, SELFPAY ==
--- NOTE | 2023-09-15 15:41 | PC.NURSE ---
Multiple messages left for patient and daughter to return call for instructions and interview. No response at this time, messages left for patient to stop Eliquis after 09/17/2023 for procedure and to call us 09/18/2023 am otherwise her procedure will need to be rescheduled.
[2023-09-18 09:08] VITALS: BMI 26.6
[2023-09-20 08:45] VITALS: BP 142/89; PULSE 71; RESP 18; TEMP 36.9; O2SAT 98; BMI 26.7
--- NOTE | 2023-09-20 09:14 | WPDANESEPPF ---
Anes - Initial Pre Proc Eval Procedure: Operation Date: 09/20/23 10:00 Proposed Procedures p Screening Colonoscopy - Jc Andersen MD Date/Time: 09/20/23 09:14 Surgeon: Jc Andersen MD Pre Op Diagnosis: hx of colon polyps Patient Data Age: 68 Gender: F Height: 1.75 m Weight: 81.7 kg Allergies Allergy/AdvReac Type Severity Reaction Status Date / Time No Known Allergies Allergy Verified 09/20/23 09:04 Home Medications Medication Instructions Recorded Confirmed Type apixaban 5 mg tablet (Eliquis) 5 mg PO BID 10/20/20 09/20/23 History acetaminophen 325 mg tablet 650 mg PO BID 07/16/21 09/20/23 History (Tylenol) levothyroxine 100 mcg tablet See Rx Instructions .Route 06/28/23 09/20/23 Rx .COMPLEX #90 tabs metoprolol succinate 100 mg 100 mg PO DAILY #90 tabs 07/14/23 09/20/23 Rx tablet,extended release 24 hr metoprolol succinate 25 mg 25 mg PO DAILY #90 tabs 07/14/23 09/20/23 Rx tablet,extended release 24 hr Patient hx anesthesia problems: none Family hx anesthesia problems: none Results Review: All pre-operative results and documents have been reviewed as part of the pre-operative evaluation. [facility] Past Medical History Medical History Age-related osteoporosis without current pathological fracture Essential (primary) hypertension Gastroesophageal reflux disease Hypothyroidism, unspecified Lumbar stenosis Mixed hyperlipidemia Polyp of colon Surgical History Surgical History History of colonoscopy with polypectomy History of exploratory laparotomy History of mandibular surgery TMJ repair. History of spinal surgery (2019) L4-L5-S1 synovial cystectomy and foraminotomy. History of tonsillectomy Family History Family History Mother Patient's mother is Family history of Alzheimer's disease Father Patient's father is Diabetes mellitus Family history of cardiovascular disease Carcinoma of colon Family history of dementia Family history of congestive heart failure Sibling Family history of malignant neoplasm Social History Social History Social History: Surrogate decision-maker: Luis Serrano, . CODE STATUS: Full code. Smoking status: Never smoker Second hand tobacco smoke exposure: No Alcohol intake: never Substance use: never Substance use type: does not use Do You Feel Safe in your Home?: Yes Lack of Transportation: No Lack of Food: Never True Current Housing: I Have Housing Concerned About Future Housing: No Difficulty Paying Gas/Electric Bills: No Difficulty Paying for Meds: No Currently Unemployed: No Education: Bachelor's Degree Difficulty w/ Childcare or Family Care: No Living arrangements: with family Additional living arrangements comments: Resides in [place] with her . 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 Spiritual care concerns: No Anes - Eval Final PreProcedure Day of Procedure 09/20/23 09:14 Patient weight: normal Heart: regular rate and rhythm Lungs: clear to auscultation Airway: Mallampati scale class II Neurological: alert and oriented Last oral intake: >/= 8 hours ASA classification: III Emergent: no Anesthetic plan: proceed Anesthesia type and monitoring: general GIVS and standard monitoring Results Review: All pre-operative results and documents have been reviewed as part of the pre-operative evaluation. Informed Consent: The patient's anesthetic plan and its attendant risks and benefits were discussed with the patient/family/POA. Questions were solicited and answers provided to the satisfaction of the patient/family/POA.
[2023-09-20] MEDS: LACTATED RINGERS 1,000 ML 150 ML IV CONT (09:23)
--- NOTE | 2023-09-20 09:43 | PM.HPGS ---
History of Present Illness History of Present Illness Consent: Risks, benefits, and alternatives have been discussed and questions answered. Patient agrees to proceed with procedure. Chief complaint: hx of colon polyps Narrative: Brianna Serrano is a 68 year old female with colon polyps, last one 5 years ago Review of Systems Review of Systems: All systems reviewed & are unremarkable except as noted in HPI and below PMFSH Past Medical History Medical History Age-related osteoporosis without current pathological fracture Essential (primary) hypertension Gastroesophageal reflux disease Hypothyroidism, unspecified Lumbar stenosis Mixed hyperlipidemia Polyp of colon Surgical History Surgical History History of colonoscopy with polypectomy History of exploratory laparotomy History of mandibular surgery TMJ repair. History of spinal surgery (2019) L4-L5-S1 synovial cystectomy and foraminotomy. History of tonsillectomy Family History Family History Mother Patient's mother is Family history of Alzheimer's disease Father Patient's father is Diabetes mellitus Family history of cardiovascular disease Carcinoma of colon Family history of dementia Family history of congestive heart failure Sibling Family history of malignant neoplasm Social History Social History Social History: Surrogate decision-maker: Luis Serrano, . CODE STATUS: Full code. Smoking status: Never smoker Second hand tobacco smoke exposure: No Alcohol intake: never Substance use: never Substance use type: does not use Do You Feel Safe in your Home?: Yes Lack of Transportation: No Lack of Food: Never True Current Housing: I Have Housing Concerned About Future Housing: No Difficulty Paying Gas/Electric Bills: No Difficulty Paying for Meds: No Currently Unemployed: No Education: Bachelor's Degree Difficulty w/ Childcare or Family Care: No Living arrangements: with family Additional living arrangements comments: Resides in [place] with her . 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 Spiritual care concerns: No Meds Home Medications and Allergies Home Medications Medication Instructions Recorded Confirmed Type apixaban 5 mg tablet (Eliquis) 5 mg PO BID 10/20/20 09/20/23 History acetaminophen 325 mg tablet 650 mg PO BID 07/16/21 09/20/23 History (Tylenol) levothyroxine 100 mcg tablet See Rx Instructions .Route 06/28/23 09/20/23 Rx .COMPLEX #90 tabs metoprolol succinate 100 mg 100 mg PO DAILY #90 tabs 07/14/23 09/20/23 Rx tablet,extended release 24 hr metoprolol succinate 25 mg 25 mg PO DAILY #90 tabs 07/14/23 09/20/23 Rx tablet,extended release 24 hr Allergies Allergy/AdvReac Type Severity Reaction Status Date / Time No Known Allergies Allergy Verified 09/20/23 09:04 Vital Signs Vital Signs - 24 hr 09/20/23 08:45 Temperature 98.4 F Pulse Rate 71 Respiratory Rate 18 Blood Pressure 142/89 H Pulse Oximetry 98 Oxygen Delivery Room Air Exam Const: General: comfortable and no acute distress HENMT: Face/Nose/Sinus: Normal nares present Eyes: General: appearance normal, both eyes and all related structures Neck: Neck: no JVD Resp: Auscultation: clear to auscultation bilaterally Cardio: Rate: regular rate Rhythm: regular rhythm GI: Inspection: non-distended GI Palp: Yes Soft to palpation Skin: General skin exam: normal color Neuro: General: gait normal Speech: normal speech Extrem: General: normal to inspection Psych: Mental Status: mental status grossly normal Assessment and Plan Assessment and plan (1) History of colon polyps:
[2023-09-20 10:02] VITALS: BP 110/69; PULSE 71; RESP 15; O2SAT 99
[2023-09-20 10:12] VITALS: BP 121/73; PULSE 65; RESP 15; O2SAT 100
[2023-09-20 10:22] VITALS: BP 138/85; PULSE 64; RESP 16; O2SAT 99
== END 2023-09-20 10:37 | disposition home or self-care (01) ==
PROVIDERS: PCP Family Medicine; Visit Provider Internal Medicine Gastroenterology
PROC: 0DJD8ZZ Inspection of Lower Intestinal Tract, Via Natural or Artificial Opening Endoscopic (ICD-10-PCS; CPT 45378; principal; 2023-09-20 10:00)
DX: Z12.11 Encounter for screening for malignant neoplasm of colon (principal); D12.2 Benign neoplasm of ascending colon; K63.5 Polyp of colon; K57.30 Diverticulosis of large intestine without perforation or abscess without bleeding; K64.8 Other hemorrhoids; I10 Essential (primary) hypertension; E78.2 Mixed hyperlipidemia; E03.9 Hypothyroidism, unspecified; M81.0 Age-related osteoporosis without current pathological fracture; K21.9 Gastro-esophageal reflux disease without esophagitis
CPT/HCPCS: 45380; 45385; 88305; J2704; J7120

== ENCOUNTER 2024-02-29 09:23 | Outpatient (CLI) | payer MEDICARE, BC, SELFPAY ==
--- NOTE | ~2024-02-29 | MM_ITS ---
EXAMINATION: MM screening alfredo BI w eloise HISTORY: Screening TECHNIQUE: Craniocaudal and mediolateral oblique 3-D tomosynthesis images were obtained and synthetic 2-D images were generated. CAD analysis was submitted and interpreted. COMPARISON: Comparison to multiple prior studies sequentially, with oldest reviewed study dated 01/2017. BREAST PARENCHYMAL COMPOSITION: Dense: The breasts are heterogeneously dense, which may obscure small masses FINDINGS: There is a focal asymmetry superiorly in the right breast, posterior third on MLO view. The left breast is stable without evidence for malignancy. IMPRESSION: 1. Right breast asymmetry superiorly/posteriorly on MLO view. 2. Additional mammographic views and possible breast ultrasound are recommended. BI-RADS Category 0: Incomplete: Needs additional imaging evaluation. Reviewed, dictated and finalized at location B. IMPRESSION: 1. Right breast asymmetry superiorly/posteriorly on MLO view. 2. Additional mammographic views and possible breast ultrasound are recommended . BI-RADS Category 0: Incomplete: Needs additional imaging evaluation.
== END 2024-02-29 09:24 | disposition home or self-care (01) ==
PROVIDERS: PCP Family Medicine; Visit Provider Family Medicine
DX: Z12.31 Encounter for screening mammogram for malignant neoplasm of breast (principal); R92.8 Other abnormal and inconclusive findings on diagnostic imaging of breast
CPT/HCPCS: 77063; 77067

== ENCOUNTER 2024-03-01 07:08 | Outpatient (CLI) | payer MEDICARE, BC, SELFPAY ==
--- NOTE | ~2024-03-01 | DEXA_ITS ---
Bone Density Report Name: GURDEEP NOVOA Age: 69 Sex: Female Ethnicity: White Date of : 1955 Indication: postmenopausal; screening for osteoporosis; Referring Provider: ELIDIA PORTILLO Study: Bone densitometry was performed. Exam Date: March 01, 2024 Accession number: [id number] Bone Density: Region BMD T-score Z-score Classification AP Spine(L1-L4) 1.014 -0.3 1.9 Normal Femoral Neck (Left) 0.709 -1.3 0.6 Osteopenia Total Hip (Left) 0.901 -0.3 1.2 Normal Femoral Neck (Right) 0.650 -1.8 0.1 Osteopenia Total Hip (Right) 0.852 -0.7 0.8 Normal Femoral Neck Mean 0.680 -1.5 0.3 Osteopenia Total Hip Mean 0.876 -0.5 1.0 Normal World Health Organization criteria for BMD impression classify patients as: Normal (T-score at or above -1.0), Osteopenia (T-score between -1.0 and -2.5), or Osteoporosis (T-score at or below -2.5). 10-year Fracture Risk(1): Major Osteoporotic Fracture 11% Hip Fracture 1.9% Reported Risk Factors: [place] (), Neck BMD=0.650, BMI=27.0 (1) FRAX(R) Version 3.08. Fracture probability calculated for an untreated patient. Fracture probability may be lower if the patient has received treatment. Clinical Information Provided by Patient: Has used the following medications: Boniva (i.e. ibandronate), Fosamax (i.e. alendronate), Prolia (i.e. denosumab), Vitamin D, Calcium Patient maximum height was 69 Menopause Age: 40 No regular weight bearing exercise Drinks caffeinated beverages Onset of menses at age 13 Number of children 2 Impression: The patient has low bone mass, based on the Right Femoral Neck T-score. Discussion: BONE DENSITY IS LOW AT ONE OR MORE SKELETAL SITES. This patient's lowest T-score is low at one or more skeletal sites. It meets the World Health Organization's (WHO) criteria for ?low bone mass? (T-score between -1.0 and -2.5). The patient's 10-year risk of fracture as calculated by FRAX is less than the threshold where pharmacological therapy is recommended by the National Osteoporosis Foundation (NOF). However, all treatment decisions require clinical judgment and consideration of individual patient factors, including patient preferences, comorbidities, previous drug use, risk factors not captured in the FRAX model (e.g., frailty, falls, vitamin D deficiency, increased bone turnover, interval significant decline in bone density) and possible under or overestimation of fracture risk by FRAX. The patient should follow a healthful lifestyle (good nutrition with adequate calcium and vitamin D, and appropriate weight-bearing exercise). Follow-Up: Consider repeating this study in 2 to 3 years to reassess this patient's status, or sooner if there is some new clinical indication. Reported by: JAMES on
== END 2024-03-01 07:09 | disposition home or self-care (01) ==
PROVIDERS: PCP Family Medicine; Visit Provider Family Medicine
DX: Z78.0 Asymptomatic menopausal state (principal); M85.89 Other specified disorders of bone density and structure, multiple sites
CPT/HCPCS: 77080

== ENCOUNTER 2024-03-21 11:15 | Outpatient (CLI) | payer MEDICARE, BC, SELFPAY ==
--- NOTE | ~2024-03-21 | MMUS_ITS ---
EXAMINATION: MM diagnostic alfredo RT w eloise, US breast RT complete HISTORY: Follow-up right breast asymmetries. TECHNIQUE: Additional 3-D tomosynthesis images of the right breast were performed and synthetic 2-D i mages were generated. CAD analysis was submitted and interpreted. High resolution complete right melvin st ultrasound was performed. COMPARISON: Comparison to multiple prior studies sequentially, with oldest reviewed study dated 08/17. BREAST PARENCHYMAL COMPOSITION: Dense: The breasts are heterogeneously dense, which may obscure small masses FINDINGS: MAMMOGRAPHIC FINDINGS: There are no suspicious masses, calcifications or architectural distortion in the right breast to sug gest malignancy. ULTRASOUND: Complete US of all 4 quadrants of the breast/s and retroareolar region was reviewed. Normal heterogen eous echotexture without focal solid or cystic mass. IMPRESSION: 1. No evidence for malignancy in the right breast. 2. Routine yearly screening mammogram and regular clinical breast examination are recommended. BI-RADS Category 1: Negative Reviewed, dictated and finalized at location B. IMPRESSION: 1. No evidence for malignancy in the right breast. 2. Routine yearly screening mammogram and regular clinical breast examination a re recommended. BI-RADS Category 1: Negative
== END 2024-03-21 11:16 | disposition home or self-care (01) ==
PROVIDERS: PCP Family Medicine; Visit Provider Family Medicine
DX: R92.8 Other abnormal and inconclusive findings on diagnostic imaging of breast (principal)
CPT/HCPCS: 76641; 77061; 77065; G0279

== ENCOUNTER 2024-04-02 11:04 | Emergency (ER) | payer MEDICARE, BC, SELFPAY ==
[2024-04-02 11:16] VITALS: BP 145/73; PULSE 74; RESP 16; TEMP 36.6; O2SAT 98
--- NOTE | 2024-04-02 11:26 | ED.SKABFB ---
HPI - Skin/Abscess/Foreign Bdy General Chief complaint: Skin/Abscess/Foreign Body Stated complaint: rash Time Seen by Provider: 04/02/24 11:26 Source: patient, RN notes reviewed and old records reviewed Mode of arrival: ambulatory Limitations: no limitations History of Present Illness HPI narrative: 69-year-old female to [facility] with complaint of red blotches to right hand that started Monday morning after staying in a hotel room. Patient denies areas of concern anywhere else on her body, known allergies, cough, fever, recent illness, use of new products at home. Patient reports similar incident approximately 1 year ago that was diagnosed as insect bites. Patient reports severe itching. Patient resting comfortably in exam room in no acute distress. Related Data Home Medications Medication Instructions Recorded Confirmed apixaban 5 mg tablet (Eliquis) 5 mg PO BID 10/20/20 04/02/24 acetaminophen 325 mg tablet 650 mg PO BID 07/16/21 04/02/24 (Tylenol) Allergies Allergy/AdvReac Type Severity Reaction Status Date / Time No Known Allergies Allergy Verified 04/02/24 11:15 Review of Systems Review of Systems: All systems reviewed & are unremarkable except as noted in HPI and below Constitutional: Constitutional: Reports no additional constitutional complaints Eyes: Eyes: Reports no additional eye complaints ENT: Reports system reviewed and no additional complaints, except as documented Cardiovascular: Cardiovascular: Reports no additional cardiovascular complaints, Denies chest pain and Denies dyspnea Respiratory: Respiratory: Reports no additional respiratory complaints, Denies cough and Denies dyspnea Musculoskeletal: Musculoskeletal: Reports no additional musculoskeletal complaints Integumentary/Breasts: Skin/Breast: Reports pruritus, Reports new lesions and Reports erythema Neurologic: Reports system reviewed and no additional complaints, except as documented Psychiatric: Psychiatric: Reports no additional psychiatric complaints [facility] Past Medical History Medical History Age-related osteoporosis without current pathological fracture Essential (primary) hypertension Gastroesophageal reflux disease Hypothyroidism, unspecified Lumbar stenosis Mixed hyperlipidemia Polyp of colon Surgical History Surgical History History of colonoscopy with polypectomy History of exploratory laparotomy History of mandibular surgery TMJ repair. History of spinal surgery (2019) L4-L5-S1 synovial cystectomy and foraminotomy. History of tonsillectomy Family History Family History Mother Patient's mother is Family history of Alzheimer's disease Father Patient's father is Diabetes mellitus Family history of cardiovascular disease Carcinoma of colon Family history of dementia Family history of congestive heart failure Sibling Family history of malignant neoplasm Social History Social History Social History: Surrogate decision-maker: Luis Serrano, . CODE STATUS: Full code. Smoking status: Never smoker Second hand tobacco smoke exposure: No Alcohol intake: never Substance use: never Substance use type: does not use Do You Feel Safe in your Home?: Yes Lack of Transportation: No Lack of Food: Never True Current Housing: I Have Housing Concerned About Future Housing: No Difficulty Paying Gas/Electric Bills: No Difficulty Paying for Meds: No Currently Unemployed: No Education: Bachelor's Degree Difficulty w/ Childcare or Family Care: No Living arrangements: with family Additional living arrangements comments: Resides in [place] with her . 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 Spiritual care concerns: No Comments At the time of my signature, I reviewed and agree with the nursing past medical, surgical, social, and family history. There is no relevant family history pertinent to the patient complaint. Exam Const: General: cooperative, healthy appearing, comfortable, no acute distress, alert and well nourished Nutritional Appearance: well nourished Orientation/consciousness: patient oriented x3 Limitations: no limitations HENMT: Head: normal to inspection Ears: external ears normal Face/Nose/Sinus: Normal external nose present, Normal nares present, normal facial exam, No erythema and No edema Face and sinus: normal facial exam, no erythema and no edema Mouth: Yes Normal oral and palatal mucosa present Eyes: General: appearance normal, both eyes and all related structures Neck: Neck: normal visual inspection, full ROM and no meningeal signs Chest: Chest palpation & inspection: normal inspection of the chest Resp: Effort & Inspection: normal respiratory effort and able to speak in complete sentences Cardio: Jugular venous distension: no JVD Rate: regular rate Back/Spine/Pelvis: Cervical Spine: cervical ROM normal Skin: General skin exam: normal color, turgor normal and lesion Lesions: lesion noted right dorsal hand borders well-defined, color red, consistency firm, morphology raised and surface with an erythematous base; nontender Neuro: General: patient oriented x3, gait normal, moves all extremities and no meningeal signs Speech: normal speech Gait exam (Neuro): Normal gait present Extrem: General: normal to inspection, full ROM and capillary refill normal Psych: Appearance: grossly normal and well kempt Course Course Emergency Course: Some parts of this dictation were generated by voice recognition software and may contain typographical and/or grammatical inaccuracies. Level of Care: Express Care Visit Vital Signs Vital signs: Vital Signs Temperature 36.6 C 04/02/24 11:16 Pulse Rate 74 04/02/24 11:16 Respiratory Rate 16 04/02/24 11:16 Blood Pressure 145/73 H 04/02/24 11:16 Pulse Oximetry 98 04/02/24 11:16 Oxygen Delivery Room Air 04/02/24 11:16 Temperature 36.6 C 04/02/24 11:16 Pulse Rate 74 04/02/24 11:16 Respiratory Rate 16 04/02/24 11:16 Blood Pressure 145/73 H 04/02/24 11:16 Pulse Oximetry 98 04/02/24 11:16 Oxygen Delivery Room Air 04/02/24 11:16 reviewed MDM - Skin/Abscess/Foreign Bdy MDM Narrative Medical decision making narrative: 69-year-old female to [facility] Care with complaint of red blotches to right hand that started Monday morning after staying in a hotel room. Patient denies areas of concern anywhere else on her body, known allergies, cough, fever, recent illness, use of new products at home. Patient reports similar incident approximately 1 year ago that was diagnosed as insect bites. Patient reports severe itching. Patient resting comfortably in exam room in no acute distress. On exam, multiple lesions present to right dorsal hand and 1 present to right proximal palm. Erythematous, firm, border is well defined, raised, nontender with erythematous base. Patient is sitting comfortably in exam room nontoxic in appearance. Patient appropriate for outpatient treatment and follow-up. Discharge instructions reviewed with patient, as well as provided in writing per nursing staff. The instructions also include specific and strict return/GO TO THE ER as well as f/u information. All questions have been answered, and the patient deny any further questions with discharge and discharge plan. Some parts of this dictation were generated by voice recognition software and may contain typographical and/or grammatical inaccuracies. Differential Diagnosis Differential diagnosis: Likely abscess of skin or subcutaneous tissue, viral exanthem, dermatophytosis, urticaria, herpes zoster, allergic reaction to drug, cellulitis, eczema, insect bites, impetigo and contact dermatitis Discharge Plan Discharge Clinical Impression: Insect bites Patient Disposition: Home, Self-Care Condition: Stable Instructions: Insect Bite or Sting (ED) Additional Instructions: Insect bites and local reactions should be washed with soap and water. Reduction of local redness may be induced with cooling (ice or cold pack). Topical creams, gels, and lotions, such as those containing calamine can be helpful in reducing itching. cetirizine 1-2 times daily per package instructions can also be helpful with reduction in symptoms for new worsening symptoms go directly to emergency department Prescriptions: New prednisone 20 mg tablet 20 mg PO DAILY Qty: 5 0RF mupirocin 2 % ointment 1 applic topical BID Qty: 15 0RF No Action Eliquis 5 mg tablet 5 mg PO BID acetaminophen [Tylenol] 325 mg Tablet 650 mg PO BID metoprolol succinate 25 mg tablet extended release 24 hr 25 mg PO DAILY Qty: 90 1RF Rx Instructions: Take along with metoprolol 100 mg ER levothyroxine 100 mcg tablet See Rx Instructions .ROUTE .COMPLEX Qty: 90 1RF Dose Instruction: TAKE 1 TABLET BY MOUTH DAILY Rx Instructions: TAKE 1 TABLET BY MOUTH DAILY metoprolol succinate 100 mg tablet extended release 24 hr 100 mg PO DAILY Qty: 90 1RF metformin 500 mg tablet extended release 24 hr 500 mg PO DAILY Qty: 90 0RF Follow-up/Referrals: Adelaida Clement DO [Primary Care Provider] -
== END 2024-04-02 11:56 | disposition home or self-care (01) ==
PROVIDERS: Emergency Provider Nurse Practitioner Family; PCP Family Medicine
DX: S60.561A Insect bite (nonvenomous) of right hand, initial encounter (principal); W57.XXXA Bitten or stung by nonvenomous insect and other nonvenomous arthropods, initial encounter; I10 Essential (primary) hypertension; K21.9 Gastro-esophageal reflux disease without esophagitis; E78.2 Mixed hyperlipidemia; M48.061 Spinal stenosis, lumbar region without neurogenic claudication; M81.0 Age-related osteoporosis without current pathological fracture
CPT/HCPCS: 99213; G0463

== ENCOUNTER 2024-07-16 10:05 | Emergency (ER) | payer MEDICARE, BC, SELFPAY ==
--- OUTSIDE RECORDS SUMMARY | 2024-07-16 10:14 | XMS_ITS | Clinical Summary ---
Author Organization [facility] Address [address] [place] [address] Phone Care Team Providers Care Tire Mold Engraver Name Role Phone Chidi Parra MD Primary Care Provider Allergies No known active allergies Medications Cholecalciferol, Vitamin D3, 2,000 unit Capsule Take 2,000 Units by mouth daily. Active levothyroxine 88 mcg tablet Take 88 mcg by mouth daily in the morning. Per pt, takes 100 mcg daily Active metoprolol succinate (TOPROL XL) 100 mg Extended Release 24 hour tablet Take 100 mg by mouth daily. Active Echinacea 400 mg Capsule Take by mouth daily. Active apixaban (ELIQUIS) 5 mg tablet Take by mouth 2 times daily. Active CALCIUM CARBONATE-VITAMI N D3 ORAL Take by mouth. Active acetaminophen (TYLENOL ARTHRITIS) 650 mg Extended Release tablet Take 650 mg by mouth every 6 hours as needed. Active Active Problems No known active problems Encounters Date Type Department Care Team Description 06/25/2024 External Device Data [facility] ABSTRACTION Provider, Abstract 06/19/2024 External Device Data [facility] ABSTRACTION Provider, Abstract 06/19/2024 External Device Data [facility] ABSTRACTION Provider, Abstract from Last 3 Months Family History Medical History Relation Name Comments Colon Cancer Father Diabetes Father Heart Disease Father Hypertension Father Diabetes Maternal Grandmother Diabetes Paternal Uncle Other Sister Leukemia Relation Name Status Comments Father Maternal Grandmother Paternal Uncle Sister Social History Tobacco Use Types Packs/Day Years Used Date Smoking Tobacco: Never Smokeless Tobacco: Never Alcohol Use Standard Drinks/Week Comments Never 0 (1 standard drink = 0.6 oz pur e alcohol) Comments No Sex and Gender Information Value Date Recorded Sex Assigned at Female 07/29/2023 8:41 AM BEND SORTER Legal Sex Female 2:35 PM CDT Gender Identity Female 07/29/2023 8:41 AM BEND SORTER Sexual Orientation Not on file Last Filed Vital Signs Vital Sign Reading Time Taken Comments Blood Pressure 156/79 08/11/2023 10:42 AM CDT Pulse 69 08/11/2023 10:42 AM CDT Temperature 36.2 C (97.2 F) 05/03/2021 1:02 PM BEND SORTER Respiratory Rate 18 08/11/2023 10:42 AM CDT Oxygen Saturation 98% 08/11/2023 10:42 AM CDT Inhaled Oxygen Concentration - - Weight 83.9 kg (185 lb) 08/11/2023 10:42 AM CDT Height 175.3 cm (5' 9 ) 08/11/2023 10:42 AM CDT Body Mass Index 27.32 08/11/2023 10:42 AM CDT Plan of Treatment Health Maintenance Due Date Last Done Comments DTAP/TDAP/TD VACCINES (1 - Tdap) 01/22/1972 BREAST CANCER SCREENING 1993 FIT-DNA Q 3 years 1998 FIT/FOBT Q 1 year 1998 Flex Sig/CT Colonography Q 5 years 1998 PNEUMOCOCCAL VACCINE 65+ YEA RS (1 of 1 - PCV) 2003 ZOSTER VACCINE (1 of 2) 2003 INFLUENZA VACCINE (#1) 2023 COVID-19 Vaccine ( - 2023- season) 2024 02/22/2021, 08/13/2020, 07/21/2020 RSV VACCINE (60+ or ) (1 - 1-dose 75+ series) 01/22/2028 COLORECTAL SCREENING 09/19/2033 09/20/2023, 09/20/19 Colorectal Cancer Screening 09/19/2033 OSTEOPOROSIS SCREENING Completed , 02/24/2022, 08/22/2019 Medical Devices Implanted Type Area Filler Operator Device Identifier Shelf Expiration Date Model / Serial / Lot Floseal 10ml Implanted:Qt y: 1 on 03/05/2019 by Ayan Guillaume MD at [facility] Hemostatic N/A: Spine Lumbar [facility] [id number] 11/15/2019 [id number] / / [id number] A Jaw-6 Titanium Screws Insurance MEDICARE PART A AND B [facility] FEDERAL RX [facility] [employer] Advance Directives For more information, please contact: [phone] * Full Code (Latest Code Status on File) Date Activated Date Inactivated Comments 03/05/2019 2:24 PM 03/05/2019 7:23 PM * Full Code Date Activated Date Inactivated Comments 03/05/2019 11:57 AM 03/05/2019 2:24 PM Care Teams Tire Mold Engraver Relationship Specialty Start Date End Date Chidi Parra MD [address] [place] [address] PCP - General Family Practice 02/04/19
--- OUTSIDE RECORDS SUMMARY | 2024-07-16 10:14 | XMS_ITS | Clinical Summary ---
Author Organization [facility] Address [address] [place] [address] Care Team Providers Care Fiber Optics Supervisor Name Role Phone Adelaida Clement DO Primary Care Provider + Allergies No known active allergies Medications echinacea purpurea extract (ECHINACEA) 125 mg tablet TAKE 1 BY MOUTH ONCE A DAY 0 0 5 Active Additional Information Patient taking differently: 400 mg, Reported on 07/29/2021 calcium carbonate (CALCIUM 500) 1,250 MG (500 mg of elemental calcium) tablet take 1 by Oral route every day 0 0 5 Active metoprolol XL (TOPROL-XL) 100 mg 24 hr tablet Take 125 mg by mouth daily TAKE 100 MG IN COMBINATION WITH 25 MG TABLET DAILY Active levothyroxine (SYNTHROID) 100 mcg tablet Take 1 tablet (100 mcg total) by mouth polarity tester before breakfast Active acetaminophen ER (TYLENOL) 650 mg 8 hr tablet Take 1 tablet (650 mg total) by mouth as directed 2 TABLETS DAILY Active metoprolol XL (TOPROL-XL) 25 mg extended release tablet TAKE 1 TABLET BY MOUTH EVERY DAY ALONG WITH 100 MG ER 4 Active Eliquis 5 mg tablet TAKE 1 TABLET EVERY 12 HOURS 180 tablet 1 4 Active Active Problems Problem Noted Date Diagnosed Date JESUS (obstructive sleep apnea) 04/25/2022 Epistaxis 10/09/2020 Chronic anticoagulation 02/18/2020 Near syncope 11/08/2019 Palpitations 01/12/2015 Overview (09/02/2016): Palpitations Chest pain 01/12/2015 Overview (09/02/2016): Chest pain Hypothyroidism 11/21/2014 Overview (09/02/2016): Hypothyroidism Abnormal cardiovascular stress test 11/21/2014 Overview (09/02/2016): Abnormal stress test Benign hypertension 11/21/2014 Overview (09/02/2016): HTN (hypertension), benign Heart murmur 11/21/2014 Overview (09/02/2016): Murmur Paroxysmal atrial fibrillation (CMS/HCC) 015 Overview (09/02/2016): Paroxysmal atrial fibrillation Dyspnea on exertion 11/21/2014 Overview (09/02/2016): FERNANDEZ (dyspnea on exertion) Surgical History Surgery Date Site/Laterality Comments SYNOVIAL CYST EXCISION SPINE SURGERY 03/06/2019 synovial c yst removed pressing on sciati Medical History Medical History Date Comments Personal history of other diseases of the circulatory system History of hypertension - (Added by TW Conv) Personal history of other endocrine, nutritional and metabolic disease History of hypothyroidism - (Added by TW Conv) Personal history of other diseases of the circulatory system History of atrial fibrillati on - detected in 1997 (Added by TW Conv) Hypertension Heart murmur Thyroid disease Acid reflux Osteoporosis Prolia injections ev michael 6 months Family History Medical History Relation Name Comments Colon cancer Father Dejon Petersen Diabetes Father Dejon Petersen Heart disease Father Dejon Petersen Heart failure Father Dejon Petersen Congestive h eart failure; Alzheimer's disease Mother Milka Johnson [employer] don Alzheimer's disease; Obesity Sister Christelle Petersen Relation Name Status Comments Father Dejon Petersen (Age 88) Mother Milka Petersen (Age 82 ) Sister Christelle Petersen Social History Tobacco Use Types Packs/Day Years Used Date Smoking Tobacco: Never Smokeless Tobacco: Never Tobacco Cessation:Counseling Given: Not Answered Alcohol Use Standard Drinks/Week Comments No 0 (1 standard drink = 0.6 oz pur e alcohol) Personal Safety Answer Date Recorded Getting School Help Needed Not on file 05/10 Comments Unknown Sex and Gender Information Value Date Recorded Sex Assigned at Not on file Legal Sex Female 1:16 AM OUTSOLE MOLDER Gender Identity Female 07/28/2020 1:01 PM OUTSOLE MOLDER Sexual Orientation Straight 07/28/2020 1: 01 PM OUTSOLE MOLDER Obstetrics History Last Filed Vital Signs Vital Sign Reading Time Taken Comments Blood Pressure 134/78 11/21/2023 9:47 AM CDT Pulse 56 11/21/2023 9:47 AM CDT Temperature 37 C (98.6 F) 12/10/2019 8:12 AM CDT Respiratory Rate - - Oxygen Saturation 97% 11/21/2023 9:47 AM CDT Inhaled Oxygen Concentration - - Weight 83.9 kg (185 lb) 11/21/2023 9:47 AM CDT Height 175.3 cm (5' 9 ) 11/21/2023 9:47 AM CDT Body Mass Index 27.32 11/21/2023 9:47 AM CDT Plan of Treatment Health Maintenance Due Date Last Done Comments Breast Cancer Screening-Mammogram 1955 Colon Cancer Screening-Colonoscopy 1955 Depression Screening 1955 Fall Risk Assessment 1955 Hepatitis C Screening 1955 Osteoporosis Screening-Bone Density Scan 1955 DTaP/Tdap/Td Vaccine (1 - Tdap) 01/22/1964 Hepatitis B Screening 1971 Zoster Vaccine (2 of 3) 07/02/2012 05/07/2012 Well Visit 65+ 2018 Pneumococcal vaccine 65+ (2 of 2 - PCV) 04/02/2019 04/02/2018 Covid-19 Vaccine (4 - 2023-2 5 season) 2024 02/22/2021, 08/13/2020, 07/21/2020 Influenza Vaccine (#1) 2024 , 03/20/2020, 01/30/2019, Additional history exists Insurance MEDICARE [employer] ACCESS OOS [employer] OOS MEDICARE Care Teams Fiber Optics Supervisor Relationship Specialty Start Date End Date Adelaida Clement DO PCP - General Family Medicine 04/25/22
--- OUTSIDE RECORDS SUMMARY | 2024-07-16 10:14 | XMS_ITS | Encounter Summary ---
Author Organization [facility] Address [address] [place] [address] Care Team Providers Care Llama Farmer Name Role Phone Chidi Parra MD Primary Care Provider Encounter Details Date Type Department Care Team (Late st Contact Info) Description 09/14/2023 Abstract [facility] Spine and Pain Management at the [facility] Medicine [address] [place] [address] Nena Willis NP [address] [place] [address] Social History Tobacco Use Types Packs/Day Years Used Date Smoking Tobacco: Never Smokeless Tobacco: Never Alcohol Use Standard Drinks/Week Comments Never 0 (1 standard drink = 0.6 oz pur e alcohol) Comments No Sex and Gender Information Value Date Recorded Sex Assigned at Female 07/29/2023 8:41 AM INDUSTRIAL SEWER Legal Sex Female 2:35 PM CDT Gender Identity Female 07/29/2023 8:41 AM INDUSTRIAL SEWER Sexual Orientation Not on file documented as of this encounter Plan of Treatment Not on file documented as of this encounter Visit Diagnoses Not on filedocumented in this encounter Care Teams Llama Farmer Relationship Specialty Start Date End Date Chidi Parra MD [address] [place] [address] PCP - General Family Practice 02/04/19 documented as of this encounter
--- OUTSIDE RECORDS SUMMARY | 2024-07-16 10:14 | XMS_ITS | Referral Summary ---
Author Organization [facility] Address [address] [place] [address] Care Team Providers Care Ultrasound Tester Name Role Phone Adelaida Clement DO Primary [...] 1 tablet (100 mcg total) by mouth greenhouse transplanter before breakfast Active acetaminophen ER (TYLENOL) 650 [...] 11/21/2014 Overview (09/02/2016): FERNANDEZ (dyspnea on exertion) Social History Tobacco Use Types Packs/Day Years [...] on file Legal Sex Female 1:16 AM BRINELL TESTER Gender Identity Female 07/28/2020 1:01 PM BRINELL TESTER Sexual Orientation Straight 07/28/2020 1: 01 PM BRINELL TESTER Last Filed Vital Signs Vital Sign Reading [...] 11/21/2023 9:47 AM CDT Plan of Treatment Not on file Insurance MEDICARE [employer] OOS Member Subscriber Plan / Payer (Ef fective 2015-Present) Name:Brianna Serrano Relation to Subscriber:Self Name:Brianna Serrano Payer ID:[id number] (NAIC) Group ID:[id number] Type:[employer] Address: [address] [place] [id number] MEDICARE Care Teams Ultrasound Tester Relationship Specialty Start Date End Date Adelaida Clement DO PCP - General Family Medicine 04/25/22
[2024-07-16 10:15] VITALS: BP 151/82; PULSE 67; RESP 18; TEMP 36.6; O2SAT 99
--- NOTE | 2024-07-16 10:29 | ED.GENADULT ---
HPI - General Adult General Chief complaint: Eye Problems Stated complaint: LT pink eye History of Present Illness HPI narrative: Brianna Serrano Is a 5-year-old female presents today with complaints of having left eye irritation left eye drainage, this started yesterday. When she woke up this morning it was crusted with some goopy drainage also noted. She states that she was around her 3-year-old grandson this weekend who had pinkeye she has a psoas she has. She denies any severe eye pain, vision changes, headache. Related Data Home Medications ?Medication ?Instructions ?Recorded ?Confirmed ?Last Taken ?Type apixaban 5 mg tablet (Eliquis) 5 mg PO BID 10/20/20 06/05/24 09/16/23 History acetaminophen 325 mg tablet 650 mg PO BID 07/16/21 06/05/24 07/15/17 History (Tylenol) Allergies Allergy/AdvReac Type Severity Reaction Status Date / Time No Known Allergies Allergy Verified 07/16/24 10:22 Review of Systems Review of Systems: All systems reviewed & are unremarkable except as noted in HPI and below PMFSH Past Medical History Medical History Gastroesophageal reflux disease Lumbar stenosis Age-related osteoporosis without current pathological fracture Essential (primary) hypertension Hypothyroidism, unspecified Mixed hyperlipidemia Polyp of colon Surgical History Surgical History History of spinal surgery (2019) [id number] synovial cystectomy and foraminotomy. History of mandibular surgery TMJ repair. History of tonsillectomy History of exploratory laparotomy History of colonoscopy with polypectomy Family History Family History Mother Patient's mother is Family history of Alzheimer's disease Father Patient's father is Diabetes mellitus Family history of cardiovascular disease Carcinoma of colon Family history of dementia Family history of congestive heart failure Sibling Family history of malignant neoplasm Social History Social History Social History: Surrogate decision-maker: Luis Serrano, . CODE STATUS: Full code. Smoking status: Never smoker Second hand tobacco smoke exposure: No Alcohol intake: never Substance use: never Substance use type: does not use Do You Feel Safe in your Home?: Yes Lack of Transportation: No Lack of Food: Never True Current Housing: I Have Housing Concerned About Future Housing: No Difficulty Paying Gas/Electric Bills: No Difficulty Paying for Meds: No Currently Unemployed: No Education: Bachelor's Degree Difficulty w/ Childcare or Family Care: No Living arrangements: with family Additional living arrangements comments: Resides in [place] with her . 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 Spiritual care concerns: No Exam Narrative: GENERAL: Well-appearing, well-nourished, and in no acute distress. HEAD: Normocephalic, atraumatic. EYES: PERRLA and EOMI. Left eye slightly injected conjunctivae, positive drainage noted. ENT: Nares clear, no rhinorrhea or epistaxis. Mucous membranes moist. Oropharynx without tonsillar hypertrophy exudate or other lesions. Bilateral TMs pearly rey nonbulging NECK: Supple. No adenopathy or masses. No carotid bruits or JVD CHEST: Clear to auscultation. No respiratory distress. No wheezes rales or rhonchi HEART: Regular rate and rhythm. No murmur heard. Normal peripheral pulses. EXTREMITIES: Normal range of motion. No edema. SKIN: Warm, dry, no rash. NEURO: No focal deficits. Alert and oriented x3. PSYCH: Normal mood and affect. Course Course Level of Care: Express Care Visit Vital Signs Vital signs: Vital Signs Temperature 36.6 C 07/16/24 10:15 Pulse Rate 07/16/24 10:15 Respiratory Rate 07/16/24 10:15 Blood Pressure 151/82 H 07/16/24 10:15 Pulse Oximetry 99 07/16/24 10:15 Oxygen Delivery Room Air 07/16/24 10:15 Temperature 36.6 C 07/16/24 10:15 Pulse Rate 67 07/16/24 10:15 Respiratory Rate 18 07/16/24 10:15 Blood Pressure 151/82 H 07/16/24 10:15 Pulse Oximetry 99 07/16/24 10:15 Oxygen Delivery Room Air 07/16/24 10:15 Medical Decision Making MDM Narrative Medical decision making narrative: 69-year-old female who presents with left eye irritation, irritation, drainage that started yesterday. She states that she was around her grandson who had pinkeye and she believes that she has that now. She states she woke up in the left eye was crusted shut and had some goopy drainage. No visual changes, denies any severe eye pain, denies headache. based on history of present illness and exam this is likely conjunctivitis. Will start patient on polymyxin half still with PCP follow-up return precautions discussed. Medical Records Medical records reviewed: Yes I reviewed the external patient's medical records. Vital Signs Vital Signs: Vital Signs Temperature 36.6 C 07/16/24 10:15 Pulse Rate 67 07/16/24 10:15 Respiratory Rate 18 07/16/24 10:15 Blood Pressure 151/82 H 07/16/24 10:15 Pulse Oximetry 99 07/16/24 10:15 Oxygen Delivery Room Air 07/16/24 10:15 Temperature 36.6 C 07/16/24 10:15 Pulse Rate 67 07/16/24 10:15 Respiratory Rate 18 07/16/24 10:15 Blood Pressure 151/82 H 07/16/24 10:15 Pulse Oximetry 99 07/16/24 10:15 Oxygen Delivery Room Air 07/16/24 10:15 Vitals reviewed by me Lab Data Lab results reviewed: Yes I reviewed the patient's lab results. Discharge Plan Discharge Clinical Impression: Acute bacterial conjunctivitis of left eye Patient Disposition: Home, Self-Care Condition: Stable Instructions: Antibiotic Form, Conjunctivitis (ED) Additional Instructions: start using the eyedrops as discussed 1 drop every 3-4 hours while awake do not exceed 6 doses in 24 hours and sharp. Follow-up with your primary care doctor in 1 week. He should be feeling better within 48 hours of starting the antibiotic drops. If he develop any worsened symptoms such as vision changes, severe pain acute, severe headache then proceed to the ER. Patient Language: Sierra Leonean Prescriptions: New polymyxin B sulf-trimethoprim 10,000 unit- 1 mg/mL drops 1 drp EACH EYE Q3H 10 Days Qty: 10 0RF Rx Instructions: while awake; do not exceed 6 doses in 24 hours No Action mupirocin 2 % ointment 1 applic topical BID Qty: 15 0RF Eliquis 5 mg tablet 5 mg PO BID clotrimazole-betamethasone 1-0.05 % cream 1 applic topical BID 28 Days Qty: 45 1RF atorvastatin 10 mg tablet 10 mg PO QHS Qty: 90 1RF metformin 500 mg tablet 500 mg PO BID Qty: 60 2RF acetaminophen [Tylenol] 325 mg Tablet 650 mg PO BID metoprolol succinate 25 mg tablet extended release 24 hr 25 mg PO DAILY Qty: 90 1RF Rx Instructions: Take along with metoprolol 100 mg ER levothyroxine 100 mcg tablet See Rx Instructions .ROUTE .COMPLEX Qty: 90 1RF Dose Instruction: TAKE 1 TABLET BY MOUTH DAILY Rx Instructions: TAKE 1 TABLET BY MOUTH DAILY metoprolol succinate 100 mg tablet extended release 24 hr 100 mg PO DAILY Qty: 90 1RF Follow-up/Referrals: Adelaida Clement DO [Primary Care Provider] - 1 Week Time of Disposition: 10:37
== END 2024-07-16 10:51 | disposition home or self-care (01) ==
PROVIDERS: Emergency Provider Nurse Practitioner Family; PCP Family Medicine
DX: H10.32 Unspecified acute conjunctivitis, left eye (principal); I10 Essential (primary) hypertension; E03.9 Hypothyroidism, unspecified; E78.2 Mixed hyperlipidemia; K21.9 Gastro-esophageal reflux disease without esophagitis; M81.0 Age-related osteoporosis without current pathological fracture; M48.061 Spinal stenosis, lumbar region without neurogenic claudication
CPT/HCPCS: 99213; G0463

== ENCOUNTER 2025-03-12 14:30 | Outpatient (RCR) | payer MEDICARE, BC, SELFPAY | END 2025-03-17 11:40 | disposition home or self-care (01) | LOC: ANHDMC 14:30 | PROVIDERS: PCP Family Medicine; Visit Provider Clinical Nurse Specialist | DX: E11.65 Type 2 diabetes mellitus with hyperglycemia (principal); Z71.89 Other specified counseling | CPT/HCPCS: G0108; G0109 ==

== ENCOUNTER 2025-03-25 10:09 | Outpatient (CLI) | payer MEDICARE, BC, SELFPAY ==
--- NOTE | ~2025-03-25 | MM_ITS ---
EXAMINATION: MM screening alfredo BI w eloise HISTORY: Screening TECHNIQUE: Craniocaudal and mediolateral oblique 3-D tomosynthesis images were obtained and synthetic 2-D images were generated. CAD analysis was submitted and interpreted. COMPARISON: Comparison to multiple prior studies sequentially, with oldest reviewed study dated 08/20/2018. BREAST PARENCHYMAL COMPOSITION: Dense: The breasts are heterogeneously dense, which may obscure small masses FINDINGS: There is no evidence of suspicious mass, calcification, or architectural distortion to suggest malignancy in either breast. There has been no suspicious interval change. IMPRESSION: 1. No mammographic evidence of malignancy. 2. Recommend routine screening mammography in one year. BI-RADS Category 1: Negative Reviewed, dictated and finalized at location B.
--- OUTSIDE RECORDS SUMMARY | 2025-03-25 11:32 | XMS_ITS | Encounter Summary ---
Author Organization [facility] Address [address] [place] [address] Care Team Providers Care Partridge Farmer Name Role Phone Adelaida Clement DO Primary Care Provider + Encounter Details Date Type Department Care Team (Late st Contact Info) Description 05/17/2024 Orders Only [facility] Health Information Management [address] [place] [id number] Scanning, Provider Social History Tobacco Use Types Packs/Day Years Used Date Smoking Tobacco: Never Smokeless Tobacco: Never Alcohol Use Standard Drinks/Week Comments No 0 (1 standard drink = 0.6 oz pur e alcohol) Comments Unknown Sex and Gender Information Value Date Recorded Sex Assigned at Not on file Legal Sex Female 1:16 AM CURB WORKER Gender Identity Female 07/28/2020 1:01 PM CURB WORKER Sexual Orientation Straight 07/28/2020 1: 01 PM CURB WORKER documented as of this encounter Plan of Treatment Not on file documented as of this encounter Procedures Procedure Name Priority Date/Time Associated Diagnosis Comments SCAN - LABS 05/17/2024 documented in this encounter Results * SCAN - LABS (05/17/2024) us Provider Scanning Final Result documented in this encounter Visit Diagnoses Not on filedocumented in this encounter Care Teams Partridge Farmer Relationship Specialty Start Date End Date Adelaida Clement DO PCP - General Family Medicine 04/25/22 documented as of this encounter
--- OUTSIDE RECORDS SUMMARY | 2025-03-25 11:32 | XMS_ITS | Clinical Summary ---
Author Organization [facility] Address [address] [place] [address] Phone Care Team Providers Care Mandarin Tutor Name Role Phone Chidi Parra MD Primary [...] Active Active Problems No known active problems Family History Medical History Relation Name Comments [...] Sex Assigned at Female 07/29/2023 8:41 AM REFRIGERATION OPERATOR Legal Sex Female 2:35 PM CDT Gender Identity Female 07/29/2023 8:41 AM REFRIGERATION OPERATOR Sexual Orientation Not on file Last Filed Vital Signs Vital Sign Reading Time Taken Comments Blood Pressure 156/79 08/11/2023 10:42 AM CDT Pulse 69 08/11/2023 10:42 AM CDT Temperature 36.2 C (97.2 F) 05/03/2021 1:02 PM REFRIGERATION OPERATOR Respiratory Rate 18 08/11/2023 10:42 AM CDT Oxygen Saturation 98% 08/11/2023 10:42 AM CDT Inhaled Oxygen Concentration - - Weight 83.9 kg (185 lb) 08/11/2023 10:42 AM CDT Height 175.3 cm (5' 9) 08/11/2023 10:42 AM CDT Body Mass Index 27.32 08/11/2023 10:42 AM CDT Plan of Treatment Health Maintenance Due Date Last Done Comments DTAP/TDAP/TD VACCINES (1 - Tdap) 01/22/1972 FIT-DNA Q 3 years 1998 FIT/FOBT Q 1 year 1998 Flex Sig/CT Colonography Q 5 years 1998 PNEUMOCOCCAL VACCINE 50+ YEA RS (1 of 1 - PCV) 2003 ZOSTER VACCINE (1 of 2) 2003 INFLUENZA VACCINE (#1) 2024 COVID-19 Vaccine (4 - 2024-2 6 season) 2025 02/22/2021, 08/13/2020, 07/21/2020 BREAST CANCER SCREENING 03/21/2025 03/21/20, 02/29/2024, 02/29/2024, Additional history exists RSV VACCINE (60+ or ) (1 - 1-dose 75+ series) 01/22/2028 OSTEOPOROSIS SCREENING 03/01/2029 , 02/24/2022, 08/22/2019 COLORECTAL SCREENING 09/19/2033 09/20/2023, 09/20/19 Colorectal Cancer Screening 09/19/2033 Medical Devices Implanted Type Area Pest Control Chemical Technician Device Identifier Shelf Expiration Date Model / Serial / Lot Floseal 10ml Implanted:Qt y: 1 on 03/05/2019 by Ayan Guillaume MD at [facility] N/A: Spine Lumbar [facility] [id number] 11/15/2019 [id number] / / [id number] A Jaw-6 Titanium Screws Insurance MEDICARE PART A AND B [facility] [employer] Advance Directives For more information, please contact: [phone] * Full Code (Latest Code Status on File) Date Activated Date Inactivated Comments 03/05/2019 2:24 PM 03/05/2019 7:23 PM * Full Code Date Activated Date Inactivated Comments 03/05/2019 11:57 AM 03/05/2019 2:24 PM Care Teams Mandarin Tutor Relationship Specialty Start Date End Date Chidi Parra MD [address] [place] [id number] PCP - General Family Practice 02/04/19
--- OUTSIDE RECORDS SUMMARY | 2025-03-25 11:32 | XMS_ITS | Encounter Summary ---
Author Organization [facility] Address [address] [place] [address] Care Team Providers Care Outpatient Physical Therapist Assistant Name Role Phone Chidi Parra MD Primary Care Provider Encounter Details Date Type Department Care Team (Late st Contact Info) Description 09/14/2023 Abstract [facility] Spine and Pain Management at the [facility] Medicine [address] [place] [address] Nena Willis NP [address] [place] [address] Social History Tobacco Use Types Packs/Day Years Used Date Smoking Tobacco: Never Smokeless Tobacco: Never Alcohol Use Standard Drinks/Week Comments Never 0 (1 standard drink = 0.6 oz pur e alcohol) Comments No Sex and Gender Information Value Date Recorded Sex Assigned at Female 07/29/2023 8:41 AM MIDDLEWARE ARCHITECT Legal Sex Female 2:35 PM CDT Gender Identity Female 07/29/2023 8:41 AM MIDDLEWARE ARCHITECT Sexual Orientation Not on file documented as of this encounter Plan of Treatment Not on file documented as of this encounter Visit Diagnoses Not on filedocumented in this encounter Care Teams Outpatient Physical Therapist Assistant Relationship Specialty Start Date End Date Chidi Parra MD [address] [place] [address] PCP - General Family Practice 02/04/19 documented as of this encounter
--- OUTSIDE RECORDS SUMMARY | 2025-03-25 11:32 | XMS_ITS | Clinical Summary ---
Author Organization [facility] Address [address] [place] [address] Care Team Providers Care Air Valve Repairer Name Role Phone Adelaida Clement DO Primary Care Provider + Allergies No known active allergies Medications echinacea purpurea extract (ECHINACEA) 125 mg tablet TAKE 1 BY MOUTH ONCE A DAY 0 0 5 Active Additional Information Patient taking differently: 400 mg, Reported on 08/01/2024 calcium carbonate (CALCIUM 500) 1,250 MG (500 mg of elemental calcium) tablet take 1 by Oral route every day 0 0 5 Active metoprolol XL (TOPROL-XL) 100 mg 24 hr tablet Take 125 mg by mouth daily TAKE 100 MG IN COMBINATION WITH 25 MG TABLET DAILY Active levothyroxine (SYNTHROID) 100 mcg tablet Take 1 tablet (100 mcg total) by mouth perianesthesia nurse before breakfast Active acetaminophen ER (TYLENOL) 650 mg 8 hr tablet Take 1 tablet (650 mg total) by mouth as directed 2 TABLETS DAILY Active metoprolol XL (TOPROL-XL) 25 mg extended release tablet TAKE 1 TABLET BY MOUTH EVERY DAY ALONG WITH 100 MG ER 4 Active atorvastatin (LIPITOR) 10 mg tablet Take 1 tablet (10 mg total) by mouth nightly at bedtime 5 Active metFORMIN (GLUMETZA) 1,000 mg 24 hr tablet Take 1 tablet (1,000 mg total) by mouth daily 5 Active apixaban (Eliquis) 5 mg tablet TAKE 1 TABLET EVERY 12 HOURS 180 tablet 3 5 Active Active Problems Problem Noted Date Diagnosed Date Mixed hyperlipidemia 08/01/2024 JESUS (obstructive sleep apnea) 04/25/2022 Epistaxis 10/09/2020 Chronic anticoagulation 02/18/2020 Near syncope 11/08/2019 Palpitations 01/12/2015 Overview (09/02/2016): Palpitations Chest pain 01/12/2015 Overview (09/02/2016): Chest pain Hypothyroidism 11/21/2014 Overview (09/02/2016): Hypothyroidism Abnormal cardiovascular stress test 11/21/2014 Overview (09/02/2016): Abnormal stress test Benign hypertension 11/21/2014 Overview (09/02/2016): HTN (hypertension), benign Heart murmur 11/21/2014 Overview (09/02/2016): Murmur Paroxysmal atrial fibrillation 11/21/2014 Overview (09/02/2016): Paroxysmal atrial fibrillation Dyspnea on [...] Osteoporosis Prolia injections ev michael 6 months Diabetes mellitus 06/15/2024 Family History Medical History Relation Name Comments Colon cancer Father Dejon Petersen Diabetes Father Dejon Petersen Heart disease Father Dejon Petersen Heart failure Father Dejon Petersen Congestive h eart failure; Alzheimer's disease Mother Milka diana Alzheimer's disease; Obesity Sister 1 Christelle Petersen Obesity Sister 2 Christelle Petersen Relation Name Status Comments Father Dejon Petersen (Age 88) Mother Milka Petersen (Age 82 ) Sister 1 Christelle Petersen Sister 2 Christelle Petersen Alive Social History Tobacco Use Types Packs/Day Years Used Date Smoking Tobacco: Never Smokeless Tobacco: Never Tobacco Cessation:Counseling Given: Not Answered Alcohol Use Standard Drinks/Week Comments No 0 (1 standard drink = 0.6 oz pur e alcohol) Comments Unknown Sex and Gender Information Value Date Recorded Sex Assigned at Not on file Legal Sex Female 1:16 AM SENIOR MAINTENANCE MECHANIC Gender Identity Female 07/28/2020 1:01 PM SENIOR MAINTENANCE MECHANIC Sexual Orientation Straight 07/28/2020 1: 01 PM SENIOR MAINTENANCE MECHANIC Obstetrics History Last Filed Vital Signs Vital Sign Reading Time Taken Comments Blood Pressure 118/78 08/01/2024 2:17 PM SENIOR MAINTENANCE MECHANIC Pulse 55 08/01/2024 2:17 PM SENIOR MAINTENANCE MECHANIC Temperature 37 C (98.6 F) 12/10/2019 8:12 AM CDT Respiratory Rate - - Oxygen Saturation 98% 08/01/2024 2:17 PM SENIOR MAINTENANCE MECHANIC Inhaled Oxygen Concentration - - Weight 78.5 kg (173 lb) 08/01/2024 2:17 PM SENIOR MAINTENANCE MECHANIC Height 175.3 cm (5' 9) 08/01/2024 2:17 PM SENIOR MAINTENANCE MECHANIC Body Mass Index 25.55 08/01/2024 2:17 PM SENIOR MAINTENANCE MECHANIC Plan of Treatment Health Maintenance Due Date [...] PCV) 04/02/2019 04/02/2018 Covid-19 Vaccine (4 - 2024-2 6 season) 2025 02/22/2021, 08/13/2020, 07/21/2020 Influenza Vaccine (#1) 2025 , 03/20/2020, 01/30/2019, Additional history exists Insurance MEDICARE MEDICARE [facility] Care Teams Air Valve Repairer Relationship Specialty Start Date End Date Adelaida Clement DO PCP - General Family Medicine 04/25/22
== END 2025-03-25 10:10 | disposition home or self-care (01) ==
PROVIDERS: PCP Family Medicine; Visit Provider Family Medicine
DX: Z12.31 Encounter for screening mammogram for malignant neoplasm of breast (principal)
CPT/HCPCS: 77063; 77067